=== PATIENT | female | born 1945 | race Caucasian/White ===

== ENCOUNTER 2021-10-18 07:47 | Outpatient (CLI) | payer MEDICARE, OTHER, SELFPAY ==
--- NOTE | 2021-10-18 07:58 | USCV_ITS ---
Amita Chen Age: 76 Gender: F : 1945 Exam Date: 10/18/2021 08:06 Ordering Phys: Pari Salvador Technologist: Jeannette Richard Exam Location: [facility] – [place] Indication: MURMUR BP: 130 / 70 HR: 78 Rhythm: Sinus Technical Quality: Adequate MEASUREMENTS (Male / Female) Normal Values 2D ECHO LV Diastolic Diameter PLAX 3.5 cm 4.2 - 5.9 / 3.9 - 5.3 cm LV Systolic Diameter PLAX 2.1 cm LV Chamber Size 3.4 cm IVS Diastolic Thickness 0.9 cm 0.6 - 1.0 / 0.6 - 0.9 cm IVS Systolic Thickness 1.2 cm LVPW Diastolic Thickness 1.1 cm 0.6 - 1.0 / 0.6 - 0.9 cm LVPW Systolic Thickness 1.2 cm RV Chamber Size 2.9 cm LVOT Diameter 2.0 cm LV Ejection Fraction 2D Teich 72.6 % LV Ejection Fraction MOD 2C 67.2 % LV Ejection Fraction 2C AL 66.6 % LA Diameter 2.9 cm LA Width 2.0 cm LA Height 3.4 cm RA Width 2.4 cm RA Height 3.4 cm Aorta at Sinotubular Diameter 2.7 cm M-MODE Aortic Annulus Diameter 2.8 cm LA Ao Ratio MM 1.0 MV E Point Septal Separation 0.4 cm DOPPLER AV Peak Velocity 156.0 cm/s LVOT Peak Velocity 114.0 cm/s AV Area Cont Eq vti 2.8 cm squared AV Area Cont Eq pk 2.3 cm squared MV Area PHT 4.6 cm squared Mitral E to A Ratio 0.7 MV E' Velocity 40.5 cm/s Mitral E to MV E' Ratio 8.6 Mitral E to LV E' Lateral Ratio 9.6 Mitral E to LV E' Septal Ratio 7.7 TR Peak Velocity 226.2 cm/s TR Peak Gradient 20.5 mmHg TR Mean Velocity 181.8 cm/s TR Mean Gradient 14.4 mmHg TR Velocity Time Integral 58.6 cm TV Peak E Velocity 55.0 cm/s Right Atrial Pressure 3.0 mmHg Pulmonary Artery Systolic Pressu 23.5 mmHg PV Peak Velocity 94.0 cm/s RV Acceleration Time 0.3 s RV Ejection Time 0.1 s RV AcT/ET 3.4 FINDINGS Left Ventricle Normal left ventricular size. LV systolic function is normal with EF of 60-65%. No regional wall motion abnormalities. Grade 1 diastolic dysfunction Right Ventricle The right ventricle is normal in size and function. Right Atrium The right atrium is normal in size. Left Atrium The left atrium is normal in size. Mitral Valve Structurally normal mitral valve without significant stenosis or prolapse. There is no mitral regurgitation. Aortic Valve Structurally normal aortic valve without significant sclerosis or stenosis. There is no aortic regurgitation. Tricuspid Valve Structurally normal tricuspid valve without significant stenosis. Mild tricuspid regurgitation. Pulmonary artery systolic pressure is normal. Pulmonic Valve Structurally normal pulmonic valve without significant stenosis. There is no pulmonic regurgitation. Pericardium Normal pericardium without effusion. Aorta Normal ascending aorta dimension. CONCLUSIONS LV systolic function is normal with EF of 60-65% Grade 1 diastolic dysfunction. Mild tricuspid regurgitation. No comparison studies are available. Bennett Kamara MD (Electronically Signed) Final Date: 27 October 2021 18:51 S
== END 2021-10-18 07:48 | disposition home or self-care (01) ==
LOC: RAD 07:51
PROVIDERS: PCP Internal Medicine; Visit Provider Nurse Practitioner Family
DX: R01.1 Cardiac murmur, unspecified (principal); I07.1 Rheumatic tricuspid insufficiency
CPT/HCPCS: 93306

== ENCOUNTER 2021-11-13 12:43 | Outpatient (CLI) | payer MEDICARE, OTHER, SELFPAY ==
--- NOTE | 2021-11-13 13:21 | MM_ITS ---
WS: [id number] Bilateral screening digital mammogram, 11/13/2021 Clinical Data: SCREEN Comparison: 09/03/2007, 04/17/2006. Findings: The breast parenchymal pattern shows fat replacement. No spiculated masses or clustered calcification s are seen. There are no secondary signs of carcinoma. There are lymph nodes in both axilla. MM/[place] [id number] Impression: 1. Negative bilateral mammogram unchanged. 2. Recommend annual screening mammograms. BIRADS: 1-Negative FOLLOW UP: 1 Year Follow-up The CAD maturity checker was used.
--- NOTE | 2021-11-13 13:42 | XR_ITS ---
WS: [id number] DEXA (DUAL ENERGY X-RAY ABSORPTIOMETRY) Bone mineral density was performed using a webme machine. HISTORY: ASYMPTOMATIC MENOPAUSAL STATUS COMPARISON: None available. Lumbar spine BMD (L1-L4): 1.085 g/cm2 T score: -0.8 Z score: 0.9 Total hip BMD: Left: 0.869 g/cm2. T score: -1.1 Z score: 0.6 Right: 0.880 g/cm2. T score: -1.0 Z score: 0.7 10 year probability of a major osteoporotic fracture is 11%. XR/XR DEXA axial skeleton* [id number] IMPRESSION: OSTEOPENIA based upon the WHO classification for females.
== END 2021-11-13 12:44 | disposition home or self-care (01) ==
LOC: RADSHAW 12:48
PROVIDERS: PCP Internal Medicine; Visit Provider Internal Medicine
DX: Z12.31 Encounter for screening mammogram for malignant neoplasm of breast (principal); Z78.0 Asymptomatic menopausal state; M85.80 Other specified disorders of bone density and structure, unspecified site
CPT/HCPCS: 77067; 77080

== ENCOUNTER 2022-05-09 07:15 | Outpatient (CLI) | payer MEDICARE, OTHER, SELFPAY ==
--- NOTE | 2022-05-09 07:30 | US_ITS ---
WS: [id number] RIGHT UPPER QUADRANT ULTRASOUND HISTORY: ELEVATED LIVER ENZYMES COMPARISON: None available. Liver: 15.6 cm in length. Liver is normal size. Very coarse echotexture throughout the liver. Surface of the liver is slightly nodular suggesting early changes of cirrhosis. No mass or bile duct dilatat ion. Portal Vein: Normal hepatopetal flow with monophasic waveform. Gallbladder: Normally distended gallbladder with no stones or wall thickening. CBD: 0.4 cm Pancreas: Head and tail are poorly visualized. The body is negative. Right kidney: 9.0 cm in length. Normal size and echogenicity. No hydronephrosis or mass. Aorta and IVC: Unremarkable abdominal aorta and IVC. No ascites. US/US abdomen limited [id number] IMPRESSION: 1. Mild hepatocellular disease. Differential includes cirrhosis and hepatic st eatosis. No mass or bile duct dilatation. 2. Normal gallbladder.
== END 2022-05-09 07:16 | disposition home or self-care (01) ==
LOC: RAD 07:16
PROVIDERS: PCP Internal Medicine; Visit Provider Internal Medicine
DX: K76.9 Liver disease, unspecified (principal); R74.8 Abnormal levels of other serum enzymes
CPT/HCPCS: 76705

== ENCOUNTER 2022-11-18 08:32 | Outpatient (CLI) | payer MEDICARE, OTHER, SELFPAY ==
--- NOTE | 2022-11-18 08:41 | MM_ITS ---
WS: [id number] Bilateral screening 3D tomosynthesis digital mammogram, 11/18/2022 Clinical Data: SCREENING Comparison: 11/13/2021, 09/03/2007, 04/17/2006. Findings: The breast parenchymal pattern shows fibroglandular tissue. No spiculated masses or clustered calcifi cations are seen. There are benign calcifications in the lateral aspect of the left breast. There are no secondary signs of carcinoma. MM/[place] [id number] Impression: 1. Negative bilateral mammogram unchanged. 2. Recommend annual screening mammograms. BIRADS: 1-Negative FOLLOW UP: 1 Year Follow-up The CAD weight checker was used.
== END 2022-11-18 08:33 | disposition home or self-care (01) ==
LOC: RAD 08:34
PROVIDERS: PCP Internal Medicine; Visit Provider Internal Medicine
DX: Z12.31 Encounter for screening mammogram for malignant neoplasm of breast (principal)
CPT/HCPCS: 77063; 77067

== ENCOUNTER 2023-02-09 10:27 | Outpatient (CLI) | payer MEDICARE, OTHER, SELFPAY ==
--- NOTE | 2023-02-09 11:16 | USCV_ITS ---
Amita Chen Age: 77 Gender: F : 1945 Exam Date: 02/09/2023 11:31 Ordering Phys: Josefa Hansen MD Technologist: Wong Hamilton Exam Location: [facility] – [place] Indication: short of breath BP: 130 / 80 HR: 81 Rhythm: Sinus Technical Quality: Adequate MEASUREMENTS (Male / Female) Normal Values 2D ECHO LV Diastolic Diameter PLAX 3.5 cm 4.2 - 5.9 / 3.9 - 5.3 cm LV Systolic Diameter PLAX 2.1 cm IVS Diastolic Thickness 1.0 cm 0.6 - 1.0 / 0.6 - 0.9 cm IVS Systolic Thickness 1.3 cm LVPW Diastolic Thickness 1.0 cm 0.6 - 1.0 / 0.6 - 0.9 cm LVPW Systolic Thickness 1.2 cm LVOT Diameter 2.0 cm LV Ejection Fraction 2D Teich 72.1 % LV Ejection Fraction MOD 2C 68.9 % LV Ejection Fraction 2C AL 68.4 % LA Diameter 3.9 cm Aorta at Sinotubular Diameter 2.0 cm IVC Diameter 1.5 cm M-MODE Aortic Annulus Diameter 3.3 cm LA Ao Ratio MM 1.3 MV E Point Septal Separation 0.5 cm DOPPLER AV Peak Velocity 156.0 cm/s LVOT Peak Velocity 128.0 cm/s AV Area Cont Eq vti 2.4 cm squared AV Area Cont Eq pk 2.7 cm squared MV Area PHT 2.8 cm squared Mitral E to A Ratio 0.8 MV E' Velocity 41.0 cm/s Mitral E to MV E' Ratio 9.1 Mitral E to LV E' Lateral Ratio 8.3 Mitral E to LV E' Septal Ratio 10.2 TR Peak Velocity 187.3 cm/s TR Peak Gradient 14.0 mmHg TV Peak E Velocity 110.0 cm/s Right Atrial Pressure 3.0 mmHg Pulmonary Artery Systolic Pressu 17.0 mmHg RV Acceleration Time 0.1 s FINDINGS Left Ventricle Normal left ventricular size and systolic function, EF 64 %. No regional wall motion abnormalities. Mild left ventricular hypertrophy. Grade I/IV diastolic dysfunction (abnormal relaxation filling pattern), normal to mildly elevated filling pressures. Right Ventricle The right ventricle is normal in size and function. Right Atrium The right atrium is normal in size. Left Atrium The left atrium is normal in size. Mitral Valve Mild mitral annular calcification. Aortic Valve Thickened aortic valve. Mild aortic valve calcification. Tricuspid Valve No gross abnormalities noted Pulmonic Valve No gross abnormalities noted Pericardium Normal pericardium without effusion. Aorta Normal ascending aorta dimension. IVC Normal inferior vena cava. CONCLUSIONS Normal left ventricular size and systolic function, EF 64 %. No regional wall motion abnormalities. Mild left ventricular hypertrophy. Grade I/IV diastolic dysfunction (abnormal relaxation filling pattern), normal to mildly elevated filling pressures. Thickened aortic valve. Mild aortic valve calcification. Mild mitral annular calcification. There is no pericardial effusion. There are no intracardiac masses. Compared to the study from 10/18/2021, there may not be a significant change Dr Portia Wick MD FACC (Electronically Signed) Final Date: 09 February 2023 18:49 S
--- NOTE | 2023-02-09 11:51 | XRR_ITS ---
PROCEDURE INFORMATION: Exam: XR Osseous Survey; Complete Axial And Appendicular Skeleton Exam date and time: 02/09/2023 12:05 PM Age: 77 years old Clinical indication: Abnormal findings; High protein in blood, prior surgery; Surgery type: Hysterectomy; Additional info: Abn lab TECHNIQUE: Imaging protocol: Radiological examination. Complete osseous survey. Axial and appendicular skeleton. COMPARISON: No relevant prior studies available. FINDINGS: Bones/joints: Unremarkable. No fracture. Joints are unremarkable. No suspicious lytic or blastic lesions. 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 Soft tissues: Unremarkable. XR/XR bone survey* [id number] IMPRESSION: Negative bone survey examination
[2023-02-10 11:04] LABS: KAPPA/LAMBDA LIGHT CHAINS FREE 0.19 (0.26-1.65); LAMBDA LIGHT CHAIN, FREE, SERU 119.4 mg/L (5.7-26.3)
[2023-02-10 13:58] LABS: Beta-2-Microglobulin 7.87 mg/L (< OR = 2.51)
== END 2023-02-09 10:28 | disposition home or self-care (01) ==
LOC: LAB 10:37
PROVIDERS: PCP Internal Medicine; Visit Provider Internal Medicine Medical Oncology
DX: R79.89 Other specified abnormal findings of blood chemistry (principal); R06.02 Shortness of breath; I08.0 Rheumatic disorders of both mitral and aortic valves
CPT/HCPCS: 36415; 77075; 82232; 83883; 86334; 93306

== ENCOUNTER 2023-02-24 08:55 | Oncology outpatient (recurring) (ONCR) | payer MEDICARE, OTHER, SELFPAY | END 2023-03-15 23:59 | disposition home or self-care (01) | PROVIDERS: PCP Internal Medicine; Visit Provider Internal Medicine Medical Oncology | DX: D47.2 Monoclonal gammopathy (principal); D70.9 Neutropenia, unspecified | CPT/HCPCS: 99204; 99205 ==

== ENCOUNTER 2023-03-02 10:15 | Day surgery (SDC) | payer MEDICARE, OTHER, SELFPAY ==
[2023-02-26 13:23] VITALS: BMI 25.4
[2023-03-02 10:37] VITALS: BP 168/85; PULSE 88; RESP 16; TEMP 36.7; O2SAT 99
[2023-03-02] MEDS: sodium chloride 0.9% 1,000 ML 30 ML IV (10:41)
[2023-03-02 11:15] LABS: Basophils % 0.4 %; Eosinophils # 0.2 10^3/uL (0.0-0.8); Eosinophils % 1.6 %; Hematocrit 38.1 % (37.0-47.0); Hemoglobin 12.1 g/dL (11.5-15.3); Lymphocytes # 5.7 10^3/uL (0.8-4.8); Lymphocytes % 54.1 %; Mean Corpuscular HGB Conc 31.8 g/dL (30.0-36.0); Mean Corpuscular Hemoglobin 31.7 pg (28.0-34.0); Mean Corpuscular Volume 99.7 fl (81-99); Mean Platelet Volume 10.8 fL (7.4-10.4); Monocytes # 1.5 10^3/uL (0.2-0.9); Monocytes % 14.5 %; Neutrophils # 3.07 10^3/uL (1.8-7.7); Neutrophils % 29.2 %; Nucleated Red Blood Cells % 0 %; Platelet Count 154 10^3/cmm (130-400); Red Blood Count 3.82 10^6/uL (4.1-5.3); Red Cell Distribution Width 13.9 % (12.1-15.1); White Blood Count 10.5 10^3/uL (4.0-10.0)
--- NOTE | 2023-03-02 11:34 | ANES.PREANE2 ---
Pre-Anesthetic Assessment Height/Weight: Height 1.52 m Weight 58.967 kg Temp Pulse Resp BP Pulse Ox O2 Del Method 98.1 F 88 16 168/85 99 Room Air 03/02/23 10:37 03/02/23 10:37 03/02/23 10:37 03/02/23 10:37 03/02/23 10:37 03/02/23 10:37 Preop Diagnosis: Monoclonal Gammopathy Operation Date: 03/02/23 12:00 Proposed Procedures p Bone Marrow Biospy With Aspiration(Not Applicable) - Ann-Marie Orozco MD Familial anesthetic complications: none Was Beta Evie taken within 24 hours: N/A Was Clonidine taken within 24 hours: N/A Last intake: Intake Last Liquid Date 03/01/23 Last Liquid Time 22:30 Last Solid Date 03/01/23 Last Solid Time 18:00 Social No alcohol and No tobacco Exam alert, oriented x 3, clear to auscultation bilaterally and regular rate & rhythm Airway Submandibular: within normal limits Cervical ROM: within normal limits Mallampati: Class II Dentition: full Pulmonary None reported CV/HEM None reported None reported Hepatic None reported elevated enzymes GI None reported Metabolic None reported Musc/skel None reported Neuropsych None reported Anesthetic Plan ASA status: 1 Anesthesia: MAC Medications/Allergies Home Medications Medication Instructions Recorded Confirmed Last Taken Type calcium carbonate 600 mg calcium 600 mg PO DAILY 02/24/23 03/02/23 03/01/23 History (1,500 mg) tablet vqfvxvvohyty-ynmpsekw-ccpzny tablet 1 tab PO DAILY 02/24/23 03/02/23 03/01/23 History quinine-vitamin E capsule 1 cap PO DAILY 02/24/23 03/02/23 Unknown History Allergies Allergy/AdvReac Type Severity Reaction Status Date / Time amoxicillin Allergy ALGY-Rash Verified 03/02/23 10:30 Current Medications Generic Name Dose Route Start Last Admin Trade Name Freq PRN Reason Stop Dose Admin Sodium Chloride 1,000 mls @ 30 mls/hr 03/02/23 10:30 03/02/23 10:41 Sodium Chloride 0.9% IV 03/03/23 10:29 30 mls/hr .Q24H JOHN Administration PFSH Anesthesia Medical History (Updated 02/24/23 @ 13:56 by Reinier Jordan MD) Elevated liver enzymes History of nephrolithiasis Surgical History (Updated 02/24/23 @ 13:56 by Reinier Jordan MD) History of colonoscopy 05/2022 History of extraction of renal calculus History of hysterectomy 1999 History of tonsillectomy 1950 Status post arthroscopic surgery of right knee Family History (Updated 02/24/23 @ 09:20 by Dea Matson LPN) Father CAD (coronary artery disease) AFIB Cancer Melanoma to head Mother CAD (coronary artery disease) Brother Cancer Prostate cancer Denies family history of Diabetes Clotting disorder Dementia Hyperlipidemia Psychiatric illness Chronic kidney disease (CKD) Suicide Anesthesia complication Bleeding disorder Lung disease Hypertension Stroke Social History (Updated 02/24/23 @ 09:15 by Dea Matson LPN) Smoking and tobacco status: never smoked Alcohol intake: never Data Anesthesia 03/02/23 10:40 Cardiac Studies: Echocardiogram 02/09/23
[2023-03-02 11:45] LABS: Slide Review Slide Review Perform
--- NOTE | 2023-03-02 12:15 | W.PM.OPSUD ---
Surgery/Procedure H&P Update DATE OF PROCEDURE: March 02, 2023 DATE H&P PERFORMED: 02/24/23 CHANGES TO PREVIOUS DOCUMENTATION: Patient seen and examined, no obvious new changes or symptoms since her recent visit to the clinic PREOP DIAGNOSIS: Monoclonal Gammopathy PRIMARY INDICATION FOR PROCEDURE: Monoclonal gammopathy/leukocytosis/lymphocytosis PLANNED PROCEDURE: Operation Date: 03/02/23 12:00 Proposed Procedures p Bone Marrow Biospy With Aspiration(Not Applicable) - Ann-Marie Orozco MD
--- NOTE | 2023-03-02 12:29 | P.PCN_ITS ---
Bone Marrow Biopsy Bone Marrow Biopsy: I was consulted by [] office regarding bone marrow biopsy on [[facility]]. Briefly, the patient is a [77] year old [Female] with [Monoclonal gammopathy]. In the Outpatient Services Department, with nursing staff and laboratory technologists in attendance, the procedure was discussed with the patient. Appropriate consent form had been signed. Appropriate alternatives, benefits and risks of procedure were discussed with the patient and she was pre- operatively assessed with a history and physical by myself and cleared for the biopsy procedure. The patient did request IV sedation and that was provided by the Anesthesia Department. Under aseptic condition right posterior area was cleaned and prepped, local anesthesia was given, about 15 cc of bone marrow aspirate and core biopsy was obtained and patient tolerated procedure well, specimen was sent for routine histopathology and flow cytometry, cytogenetics and molecular studies, as requested by Dr. Jordan Thank you for allowing me to participate in this patient's care and diagnosis. Coding Level of Care Code Acute Code for Shaggy Fwhaily
[2023-03-02 12:32] VITALS: BP 102/56; PULSE 70; RESP 16; TEMP 36.4; O2SAT 95
[2023-03-02 12:50] VITALS: BP 127/65; PULSE 67; RESP 18; O2SAT 96
--- NOTE | 2023-03-02 14:56 | ANE.PACU2 ---
Inpatient post-anesthesia follow up: Airway intact: Yes Vital signs: Temperature 97.6 F Pulse Rate 67 Respiratory Rate 18 Blood Pressure 127/65 Pulse Oximetry 96 Oxygen Delivery Me thod Room Air Oxygen Flow Rate Fraction of Inspir ed Oxygen Hydration adequate: Yes Nausea and vomiting: No Pain level: 2 Mental status: Baseline
[2023-03-03 15:01] LABS: Leukemia Profile (BBPL) See Report; Lymphoma Profile (BBPL) See Report
[2023-03-11 10:37] LABS: Chromosome Analysis BBPL See Report
[2023-03-12 10:23] LABS: CLL Prognostic Panel (BBPL) See Report
[2023-03-16 10:46] LABS: Miscellaneous Test See Scanned Lab Rpt
[2023-03-25 12:09] LABS: Miscellaneous Test See Scanned Lab Rpt
== END 2023-03-02 13:05 | disposition home or self-care (01) ==
PROVIDERS: PCP Internal Medicine; Visit Provider Internal Medicine Hematology & Oncology
PROC: 07DT3ZX Extraction of Bone Marrow, Percutaneous Approach, Diagnostic (ICD-10-PCS; CPT 38222; principal; 2023-03-02 12:00)
DX: D47.2 Monoclonal gammopathy (principal); R74.01 Elevation of levels of liver transaminase levels; D70.9 Neutropenia, unspecified
CPT/HCPCS: 36415; 38222; 81263; 81305; 82232; 85025; 88184; 88185; 88237; 88264; 88271; 88291; 88305; 88311; 88367; 88374; J2704; J7030

== ENCOUNTER 2023-03-12 14:49 | Outpatient (CLI) | payer MEDICARE, OTHER, SELFPAY ==
[2023-03-12 16:19] LABS: Blood Urea Nitrogen 17 mg/dL (8-23)
--- NOTE | 2023-03-12 16:30 | CT_ITS ---
WS: [id number] CT CHEST, ABDOMEN AND PELVIS WITH CONTRAST HISTORY: Staging for Waldenstrom's macroglobulinemia TECHNIQUE: Contiguous 5 mm axial imaging performed through the chest, abdomen and pelvis with IV cont rast, oral contrast has been provided. Coronal and sagittal reformats chest. Coronal and sagittal ref ormats through the abdomen and pelvis. All CT scans at [facility] use at least one of these d ose optimization techniques: automated exposure control; mA and/or kV adjustment per patient size (in cludes targeted exams where dose is matched to clinical indication); or iterative reconstruction. CONTRAST: Omnipaque 350; 100 mL IV. DLP: 178.03 mGy.cm COMPARISON: None available. Chest CT: No pulmonary mass or nodule. Some area of groundglass attenuation in the medial RIGHT lower lobe adjacent to a spine osteophyte. No pericardial or pleural effusions. Heart is mildly enlarged. No supraclavicular adenopathy. There are several small lymph nodes in the axilla, RIGHT greater than LEFT. No mediastinal or hilar adenopathy. No retrocrural lymph nodes. Mild atherosclerosis aorta. Nor mal size pulmonary artery. Abdomen CT: Abnormal liver. Caudate enlargement with a very nodular surface of the liver. Main portal vein is normal. No hepatic mass. Recannulization of the umbilical vein. Spleen is markedly enlarged extending over a length of 14.6 cm. Normal gallbladder. Mild atrophy of the pancreas. No bile duct di latation. Normal adrenal glands. No renal obstruction. Cyst with wall calcification superior pole RIG HT kidney measures 2.5 x 2.5 cm. Too small to characterize low-attenuation nodule LEFT kidney. Modera te atherosclerosis aorta with no aneurysm. Numerous enlarged lymph nodes are noted near the upper abdomen towards the celiac axis and marjorie hep atis with the largest measuring 18 mm in short axis diameter. There are several smaller but numerous lymph nodes at the aortocaval and SMA location. Small shoddy para-aortic lymph nodes. These are all l ess than a centimeter. Mildly distended stomach with oral contrast. No small bowel obstruction. No colon obstruction. Append ix is not identified. Numerous diverticula in the distal colon. No acute diverticulitis or obstructio n. Pelvic CT: Small amount of ascites. Normal appearance of the urinary bladder. No adenopathy identifie d in the pelvis. Prior hysterectomy. Increase in lumbar lordosis. Increase in thoracic kyphosis. CT/CT chest abdpel w/*[id number] IMPRESSION: 1. Very small subcentimeter axillary lymph nodes. 2. No lymphadenopathy within the mediastinum or hilum. 3. Celiac axis and marjorie hepatis lymphadenopathy with the largest lymph nodes measuring up to 18 mm. There are additional smaller aortocaval and periaortic l ymph nodes. 4. Changes of cirrhosis with portal hypertension. Spleen is enlarged with reca nalization of the umbilical vein. 5. Small amount of ascites. 6. Prior hysterectomy. 7. Complex RIGHT renal cyst with calcification in the wall.
[2023-03-12] MEDS: iohexol 350 mg/mL 500 mL Btl (per mL) IV (16:33)
[2023-03-12] MEDS: iohexol 350 mg/mL 500 mL Btl (per mL) PO (16:33)
[2023-03-12 17:12] LABS: Basophils % 0.3 %; Eosinophils # 0.2 10^3/uL (0.0-0.8); Eosinophils % 1.8 %; Hematocrit 35.2 % (37.0-47.0); Hemoglobin 11.3 g/dL (11.5-15.3); Lymphocytes # 4.5 10^3/uL (0.8-4.8); Lymphocytes % 51.6 %; Mean Corpuscular HGB Conc 32.1 g/dL (30.0-36.0); Mean Corpuscular Hemoglobin 31.7 pg (28.0-34.0); Mean Corpuscular Volume 98.6 fl (81-99); Mean Platelet Volume 10.7 fL (7.4-10.4); Monocytes % 11.6 %; Neutrophils % 34.5 %; Nucleated Red Blood Cells % 0 %; Platelet Count 135 10^3/cmm (130-400); Red Blood Count 3.57 10^6/uL (4.1-5.3); Red Cell Distribution Width 13.7 % (12.1-15.1); White Blood Count 8.7 10^3/uL (4.0-10.0)
[2023-03-12 17:13] LABS: Erythrocyte Sedimentation Rate 22 mm/hr (0-15)
[2023-03-12 17:31] LABS: Slide Review Slide Review Perform
[2023-03-12 17:36] LABS: Alanine Aminotransferase 57 U/L (0-33); Albumin Level 3.6 g/dL (3.5-5.2); Alkaline Phosphatase 88 U/L (35-105); Anion Gap 15.2 (5-19); Aspartate Amino Transferase 52 U/L (0-32); Blood Urea Nitrogen 19 mg/dL (8-23); Calcium 9.7 mg/dL (8.5-10.5); Carbon Dioxide 24 mmol/L (22-29); Chloride 98 mmol/L (98-107); Globulin 5.6 g/dL (1.3-4.6); Glucose 85 mg/dL (65-115); Immunoglobulin IGA 98 mg/dL (70-400); Immunoglobulin IGG 1027 mg/dL (700-1600); Lactate Dehydrogenase 146 U/L (135-214); Osmolality Calculated 278 mOsm/kg (285-295); Potassium 4.2 mmol/L (3.5-5.1); Sodium 133 mmol/L (136-145); Total Bilirubin 0.9 mg/dL (0.15-1.2); Total Protein 9.2 g/dL (6.6-8.7)
[2023-03-12 17:49] LABS: Immunoglobulin IGM 4071 mg/dL (40-230)
[2023-03-12 17:53] LABS: Hepatitis A Antibody IgM Non-Reactive (Nonreactive); Hepatitis B Core AB, Total Non-Reactive (Nonreactive); Hepatitis B Surface AB 3.5 (11.5-1000); Hepatitis B Surface Antigen Non-Reactive (Nonreactive); Hepatitis C Virus Antibody Non-Reactive (Nonreactive)
[2023-03-17 00:40] LABS: PROTEIN, TOTAL 9.2 g/dL (6.1-8.1)
[2023-03-17 12:10] LABS: ABNORMAL PROTEIN BAND 1 2.7 g/dL (NONE DETECTED); ALBUMIN 3.5 g/dL (3.8-4.8); ALPHA 1 GLOBULIN 0.3 g/dL (0.2-0.3); ALPHA 2 GLOBULIN 1.4 g/dL (0.5-0.9); BETA 1 GLOBULIN 0.3 g/dL (0.4-0.6); BETA 2 GLOBULIN 0.3 g/dL (0.2-0.5); GAMMA GLOBULIN 3.4 g/dL (0.8-1.7)
== END 2023-03-12 14:50 | disposition home or self-care (01) ==
LOC: RAD 14:51
PROVIDERS: PCP Internal Medicine; Visit Provider Internal Medicine Medical Oncology
DX: D47.2 Monoclonal gammopathy (principal); R74.8 Abnormal levels of other serum enzymes
CPT/HCPCS: 36415; 71260; 74177; 80053; 82565; 82784; 83615; 84155; 84165; 84520; 84550; 85025; 85651; 86334; 86705; 86706; 86709; 86803; 87340; Q9967

== ENCOUNTER 2023-03-31 08:34 | Oncology outpatient (recurring) (ONCR) | payer MEDICARE, OTHER, SELFPAY ==
[2023-03-31 09:04] LABS: Hemoglobin 11.5 g/dL (11.5-15.3); Mean Corpuscular HGB Conc 31.9 g/dL (30.0-36.0); Mean Corpuscular Hemoglobin 31.3 pg (28.0-34.0); Mean Corpuscular Volume 97.8 fl (81-99); Mean Platelet Volume 10.3 fL (7.4-10.4); Platelet Count 155 10^3/cmm (130-400); Red Blood Count 3.68 10^6/uL (4.1-5.3); Red Cell Distribution Width 13.6 % (12.1-15.1)
[2023-03-31 09:23] LABS: Alanine Aminotransferase 47 U/L (0-33); Albumin Level 3.7 g/dL (3.5-5.2); Alkaline Phosphatase 88 U/L (35-105); Anion Gap 17.1 (5-19); Aspartate Amino Transferase 48 U/L (0-32); Blood Urea Nitrogen 17 mg/dL (8-23); Carbon Dioxide 24 mmol/L (22-29); Chloride 100 mmol/L (98-107); Globulin 5.9 g/dL (1.3-4.6); Glucose 95 mg/dL (65-115); Immunoglobulin IGA 85 mg/dL (70-400); Immunoglobulin IGG 1084 mg/dL (700-1600); Lactate Dehydrogenase 143 U/L (135-214); Osmolality Calculated 285 mOsm/kg (285-295); Potassium 4.1 mmol/L (3.5-5.1); Sodium 137 mmol/L (136-145); Total Bilirubin 1.1 mg/dL (0.15-1.2); Total Protein 9.6 g/dL (6.6-8.7)
[2023-03-31 09:36] LABS: Immunoglobulin IGM 4391 mg/dL (40-230)
[2023-03-31 10:36] LABS: Slide Review Slide Review Perform
[2023-03-31 10:37] LABS: Absolute Eosinophils 0.1 10^3/cmm (0.0-0.7); Absolute Segmented Neutrophil 3.9 10/cmm (1.6-7.1); Band Neutrophils Absolute 0.4 10^3/cmm (0.0-1.2); Eosinophils 2 %; Lymphocytes 33 %; Lymphocytes Absolute 4.4 10^3/cmm (1.2-3.4); Monocytes Absolute 0.2 10^3/cmm (0.1-0.6); Segmented Neutrophils 43 %; Total Cells Counted 100 (0-100)
[2023-03-31 10:38] LABS: Absolute Neutrophil 4.2 10^3/cmm (1.4-6.5); Platelet Estimate Normal (Normal)
[2023-04-01 15:21] LABS: PROTEIN, TOTAL 9.5 g/dL (6.1-8.1)
[2023-04-02 13:26] LABS: ABNORMAL PROTEIN BAND 1 3.1 g/dL (NONE DETECTED); ALBUMIN 3.9 g/dL (3.8-4.8); ALPHA 1 GLOBULIN 0.3 g/dL (0.2-0.3); ALPHA 2 GLOBULIN 0.8 g/dL (0.5-0.9); BETA 1 GLOBULIN 0.4 g/dL (0.4-0.6); BETA 2 GLOBULIN 0.3 g/dL (0.2-0.5); GAMMA GLOBULIN 3.8 g/dL (0.8-1.7)
== END 2023-04-15 23:59 | disposition home or self-care (01) ==
PROVIDERS: PCP Internal Medicine; Visit Provider Internal Medicine Medical Oncology
DX: C88.0 Waldenstrom macroglobulinemia (principal); D47.2 Monoclonal gammopathy; R74.8 Abnormal levels of other serum enzymes; D64.9 Anemia, unspecified; K76.0 Fatty (change of) liver, not elsewhere classified; K76.6 Portal hypertension; Z79.899 Other long term (current) drug therapy
CPT/HCPCS: 36415; 80053; 82784; 83615; 84155; 84165; 85007; 85025; 99214

== ENCOUNTER 2023-05-05 07:58 | Oncology outpatient (recurring) (ONCR) | payer MEDICARE, OTHER, SELFPAY ==
[2023-05-05 08:07] VITALS: BP 161/72; PULSE 83; RESP 18; TEMP 36.9; O2SAT 98
[2023-05-05 08:17] LABS: Hematocrit 34.1 % (37.0-47.0); Hemoglobin 10.9 g/dL (11.5-15.3); Mean Corpuscular Hemoglobin 31.2 pg (28.0-34.0); Mean Corpuscular Volume 97.7 fl (81-99); Mean Platelet Volume 9.8 fL (7.4-10.4); Platelet Count 131 10^3/cmm (130-400); Red Blood Count 3.49 10^6/uL (4.1-5.3); Red Cell Distribution Width 13.7 % (12.1-15.1); White Blood Count 9.7 10^3/uL (4.0-10.0)
[2023-05-05 09:00] LABS: Alanine Aminotransferase 37 U/L (0-33); Albumin Level 3.5 g/dL (3.5-5.2); Alkaline Phosphatase 92 U/L (35-105); Anion Gap 17.2 (5-19); Aspartate Amino Transferase 39 U/L (0-32); Blood Urea Nitrogen 15 mg/dL (8-23); Calcium 9.9 mg/dL (8.5-10.5); Carbon Dioxide 22 mmol/L (22-29); Chloride 105 mmol/L (98-107); Globulin 5.5 g/dL (1.3-4.6); Glucose 87 mg/dL (65-115); Lactate Dehydrogenase 140 U/L (135-214); Osmolality Calculated 290 mOsm/kg (285-295); Potassium 4.2 mmol/L (3.5-5.1); Sodium 140 mmol/L (136-145); Total Bilirubin 0.7 mg/dL (0.15-1.2)
[2023-05-05 09:01] LABS: Absolute Neutrophil 4.1 10^3/cmm (1.4-6.5); Absolute Segmented Neutrophil 3.9 10/cmm (1.6-7.1); Band Neutrophils Absolute 0.2 10^3/cmm (0.0-1.2); Eosinophils 0 %; Lymphocytes 18 %; Lymphocytes Absolute 4.9 10^3/cmm (1.2-3.4); Monocytes Absolute 0.7 10^3/cmm (0.1-0.6); Platelet Estimate Decreased (Normal); Segmented Neutrophils 40 %; Slide Review Slide Review Perform; Total Cells Counted 100 (0-100)
== END 2023-05-15 23:59 | disposition home or self-care (01) ==
PROVIDERS: PCP Internal Medicine; Visit Provider Internal Medicine Medical Oncology
DX: C88.0 Waldenstrom macroglobulinemia (principal); D47.2 Monoclonal gammopathy; D64.9 Anemia, unspecified; K74.60 Unspecified cirrhosis of liver; K76.6 Portal hypertension; Z79.899 Other long term (current) drug therapy
CPT/HCPCS: 36415; 80053; 83615; 85007; 85025; 99215

== ENCOUNTER 2023-05-26 09:24 | Oncology outpatient (recurring) (ONCR) | payer MEDICARE, OTHER, SELFPAY ==
[2023-05-26 09:57] VITALS: BP 149/72; PULSE 79; RESP 16; TEMP 36.3; O2SAT 97
[2023-05-26 10:09] LABS: Basophils # 0.1 10^3/uL (0.0-0.1); Basophils % 0.8 %; Eosinophils # 0.1 10^3/uL (0.0-0.8); Eosinophils % 1.2 %; Hematocrit 31.4 % (37.0-47.0); Hemoglobin 9.9 g/dL (11.5-15.3); Lymphocytes # 7.8 10^3/uL (0.8-4.8); Lymphocytes % 68.3 %; Mean Corpuscular HGB Conc 31.5 g/dL (30.0-36.0); Mean Corpuscular Volume 98.4 fl (81-99); Mean Platelet Volume 10.9 fL (7.4-10.4); Monocytes # 0.4 10^3/uL (0.2-0.9); Monocytes % 3.1 %; Neutrophils # 3.02 10^3/uL (1.8-7.7); Neutrophils % 26.4 %; Nucleated Red Blood Cells % 0 %; Platelet Count 154 10^3/cmm (130-400); Red Blood Count 3.19 10^6/uL (4.1-5.3); Red Cell Distribution Width 14.2 % (12.1-15.1); White Blood Count 11.4 10^3/uL (4.0-10.0)
[2023-05-26 10:37] LABS: Alanine Aminotransferase 39 U/L (0-33); Albumin Level 3.6 g/dL (3.5-5.2); Alkaline Phosphatase 89 U/L (35-105); Anion Gap 13.5 (5-19); Aspartate Amino Transferase 35 U/L (0-32); Blood Urea Nitrogen 19 mg/dL (8-23); Carbon Dioxide 25 mmol/L (22-29); Chloride 106 mmol/L (98-107); Globulin 4.9 g/dL (1.3-4.6); Glucose 91 mg/dL (65-115); Immunoglobulin IGA 77 mg/dL (70-400); Immunoglobulin IGG 948 mg/dL (700-1600); Lactate Dehydrogenase 127 U/L (135-214); Osmolality Calculated 292 mOsm/kg (285-295); Potassium 4.5 mmol/L (3.5-5.1); Sodium 140 mmol/L (136-145); Total Protein 8.5 g/dL (6.6-8.7)
[2023-05-26 10:49] LABS: Immunoglobulin IGM 3514 mg/dL (40-230)
[2023-05-27 08:04] LABS: PROTEIN, TOTAL 8.4 g/dL (6.1-8.1)
[2023-05-27 16:09] LABS: ABNORMAL PROTEIN BAND 1 2.5 g/dL (NONE DETECTED); ALBUMIN 3.6 g/dL (3.8-4.8); ALPHA 1 GLOBULIN 0.3 g/dL (0.2-0.3); ALPHA 2 GLOBULIN 0.7 g/dL (0.5-0.9); BETA 1 GLOBULIN 0.4 g/dL (0.4-0.6); BETA 2 GLOBULIN 0.3 g/dL (0.2-0.5); GAMMA GLOBULIN 3.1 g/dL (0.8-1.7)
== END 2023-06-15 23:59 | disposition home or self-care (01) ==
PROVIDERS: Nurse Practitioner Family; PCP Internal Medicine; Visit Provider Internal Medicine Medical Oncology
DX: C88.0 Waldenstrom macroglobulinemia (principal); D47.2 Monoclonal gammopathy; R74.8 Abnormal levels of other serum enzymes; Z79.899 Other long term (current) drug therapy
CPT/HCPCS: 36415; 80053; 82784; 83615; 84155; 84165; 85025; 99214

== ENCOUNTER 2023-07-01 13:52 | Oncology outpatient (recurring) (ONCR) | payer MEDICARE, OTHER, SELFPAY ==
[2023-06-24 12:56] VITALS: BP 143/76; PULSE 74; RESP 18; TEMP 36.3; O2SAT 98
[2023-06-24 13:42] LABS: Basophils % 0.4 %; Eosinophils # 0.2 10^3/uL (0.0-0.8); Eosinophils % 1.6 %; Hematocrit 33.6 % (37.0-47.0); Lymphocytes # 5.3 10^3/uL (0.8-4.8); Lymphocytes % 58.1 %; Mean Corpuscular HGB Conc 32.7 g/dL (30.0-36.0); Mean Corpuscular Hemoglobin 32.4 pg (28.0-34.0); Mean Corpuscular Volume 99.1 fl (81-99); Mean Platelet Volume 11.9 fL (7.4-10.4); Monocytes # 0.5 10^3/uL (0.2-0.9); Monocytes % 5.6 %; Neutrophils # 3.09 10^3/uL (1.8-7.7); Neutrophils % 34.1 %; Nucleated Red Blood Cells % 0 %; Platelet Count 139 10^3/cmm (130-400); Red Blood Count 3.39 10^6/uL (4.1-5.3); Red Cell Distribution Width 14.7 % (12.1-15.1); White Blood Count 9.1 10^3/uL (4.0-10.0)
[2023-06-24 13:52] LABS: Alanine Aminotransferase 22 U/L (0-33); Albumin Level 3.8 g/dL (3.5-5.2); Alkaline Phosphatase 78 U/L (35-105); Anion Gap 13.4 (5-19); Aspartate Amino Transferase 29 U/L (0-32); Blood Urea Nitrogen 20 mg/dL (8-23); Calcium 9.7 mg/dL (8.5-10.5); Carbon Dioxide 28 mmol/L (22-29); Chloride 103 mmol/L (98-107); Globulin 4.6 g/dL (1.3-4.6); Glucose 102 mg/dL (65-115); Immunoglobulin IGA 75 mg/dL (70-400); Immunoglobulin IGG 978 mg/dL (700-1600); Lactate Dehydrogenase 148 U/L (135-214); Osmolality Calculated 293 mOsm/kg (285-295); Potassium 4.4 mmol/L (3.5-5.1); Sodium 140 mmol/L (136-145); Total Bilirubin 1.1 mg/dL (0.15-1.2); Total Protein 8.4 g/dL (6.6-8.7)
[2023-06-24 14:01] LABS: Free T4 Free Thyroxine 1.16 ng/dL (0.82-1.77); Thyroid Stimulating Hormone 2.97 uIU/mL (0.27-4.20)
[2023-06-24 14:16] LABS: Immunoglobulin IGM 3380 mg/dL (40-230)
[2023-06-26 01:09] LABS: PROTEIN, TOTAL 8.4 g/dL (6.1-8.1)
[2023-06-26 10:30] LABS: ABNORMAL PROTEIN BAND 1 2.1 g/dL (NONE DETECTED); ALBUMIN 3.8 g/dL (3.8-4.8); ALPHA 1 GLOBULIN 0.3 g/dL (0.2-0.3); ALPHA 2 GLOBULIN 0.7 g/dL (0.5-0.9); BETA 1 GLOBULIN 0.5 g/dL (0.4-0.6); BETA 2 GLOBULIN 0.3 g/dL (0.2-0.5); GAMMA GLOBULIN 2.8 g/dL (0.8-1.7)
== END 2023-07-16 23:59 | disposition home or self-care (01) ==
PROVIDERS: PCP Internal Medicine; Visit Provider Internal Medicine Medical Oncology
DX: C88.0 Waldenstrom macroglobulinemia (principal); D47.2 Monoclonal gammopathy; Z79.899 Other long term (current) drug therapy
CPT/HCPCS: 36415; 80053; 82784; 83615; 84155; 84165; 84439; 84443; 85025; 99214

== ENCOUNTER 2023-07-28 12:05 | Oncology outpatient (recurring) (ONCR) | payer MEDICARE, OTHER, SELFPAY ==
[2023-07-28 12:09] VITALS: BP 142/75; PULSE 68; RESP 18; TEMP 36.1; O2SAT 97
[2023-07-28 12:44] LABS: Alanine Aminotransferase 17 U/L (0-33); Albumin Level 3.8 g/dL (3.5-5.2); Alkaline Phosphatase 80 U/L (35-105); Anion Gap 11.5 (5-19); Aspartate Amino Transferase 23 U/L (0-32); Blood Urea Nitrogen 18 mg/dL (8-23); Calcium 9.7 mg/dL (8.5-10.5); Carbon Dioxide 28 mmol/L (22-29); Chloride 104 mmol/L (98-107); Globulin 4.5 g/dL (1.3-4.6); Glucose 91 mg/dL (65-115); Osmolality Calculated 289 mOsm/kg (285-295); Potassium 4.5 mmol/L (3.5-5.1); Sodium 139 mmol/L (136-145); Total Protein 8.3 g/dL (6.6-8.7)
[2023-07-28 12:48] LABS: Basophils % 0.5 %; Eosinophils # 0.2 10^3/uL (0.0-0.8); Lymphocytes # 4.6 10^3/uL (0.8-4.8); Lymphocytes % 56.3 %; Mean Corpuscular HGB Conc 31.7 g/dL (30-55); Mean Corpuscular Hemoglobin 31.2 pg (27-33); Mean Corpuscular Volume 98.3 fl (85-98); Mean Platelet Volume 12.1 fL (7.4-10.4); Monocytes # 0.5 10^3/uL (0.2-0.9); Neutrophils # 2.86 10^3/uL (1.8-7.7); Nucleated Red Blood Cells % 0 %; Platelet Count 117 10^3/cmm (157-399); Red Blood Count 3.56 10^6/uL (3.85-5.65); Red Cell Distribution Width 13.9 % (12.1-15.1); White Blood Count 8.17 10^3/uL (3.29-11.43)
[2023-07-28 14:49] LABS: Immunoglobulin IGA 70 mg/dL (70-400); Immunoglobulin IGG 938 mg/dL (700-1600)
[2023-07-28 16:44] LABS: Immunoglobulin IGM 3625 mg/dL (40-230)
== END 2023-08-15 23:59 | disposition home or self-care (01) ==
PROVIDERS: PCP Internal Medicine; Visit Provider Internal Medicine Medical Oncology
DX: C88.0 Waldenstrom macroglobulinemia (principal); D47.2 Monoclonal gammopathy
CPT/HCPCS: 36415; 80053; 82784; 85025; 99214

== ENCOUNTER 2023-10-27 13:20 | Oncology outpatient (recurring) (ONCR) | payer MEDICARE, OTHER, SELFPAY ==
[2023-10-20 13:04] VITALS: BP 143/60; PULSE 72; RESP 16; TEMP 36.7; O2SAT 99
[2023-10-20 13:23] LABS: Basophils % 0.7 %; Eosinophils # 0.1 10^3/uL (0.0-0.8); Eosinophils % 1.8 %; Hematocrit 34.5 % (36-47); Lymphocytes # 2.5 10^3/uL (0.8-4.8); Lymphocytes % 44.6 %; Mean Corpuscular HGB Conc 32.5 g/dL (30-55); Mean Corpuscular Hemoglobin 32.1 pg (27-33); Mean Corpuscular Volume 98.9 fl (85-98); Mean Platelet Volume 11.3 fL (7.4-10.4); Monocytes # 0.4 10^3/uL (0.2-0.9); Monocytes % 7.7 %; Neutrophils # 2.46 10^3/uL (1.8-7.7); Neutrophils % 44.8 %; Nucleated Red Blood Cells % 0 %; Platelet Count 111 10^3/cmm (157-399); Red Blood Count 3.49 10^6/uL (3.85-5.65); White Blood Count 5.49 10^3/uL (3.29-11.43)
[2023-10-20 13:46] LABS: Alanine Aminotransferase 16 U/L (0-33); Albumin Level 3.7 g/dL (3.5-5.2); Alkaline Phosphatase 85 U/L (35-105); Anion Gap 11.1 (5-19); Aspartate Amino Transferase 21 U/L (0-32); Blood Urea Nitrogen 16 mg/dL (8-23); Calcium 9.6 mg/dL (8.5-10.5); Carbon Dioxide 29 mmol/L (22-29); Chloride 104 mmol/L (98-107); Globulin 3.9 g/dL (1.3-4.6); Glucose 87 mg/dL (65-115); Immunoglobulin IGA 76 mg/dL (70-400); Immunoglobulin IGG 868 mg/dL (700-1600); Lactate Dehydrogenase 132 U/L (135-214); Osmolality Calculated 291 mOsm/kg (285-295); Potassium 4.1 mmol/L (3.5-5.1); Sodium 140 mmol/L (136-145); Total Bilirubin 0.9 mg/dL (0.15-1.2); Total Protein 7.6 g/dL (6.6-8.7)
[2023-10-20 16:12] LABS: Immunoglobulin IGM 2434 mg/dL (40-230)
[2023-10-21 11:19] LABS: PROTEIN, TOTAL 7.5 g/dL (6.1-8.1)
[2023-10-21 17:45] LABS: ALBUMIN 3.6 g/dL (3.8-4.8); ALPHA 1 GLOBULIN 0.3 g/dL (0.2-0.3); ALPHA 2 GLOBULIN 0.7 g/dL (0.5-0.9); BETA 1 GLOBULIN 0.3 g/dL (0.4-0.6); BETA 2 GLOBULIN 0.2 g/dL (0.2-0.5); GAMMA GLOBULIN 2.5 g/dL (0.8-1.7)
== END 2023-11-15 23:59 | disposition home or self-care (01) ==
PROVIDERS: PCP Internal Medicine; Visit Provider Internal Medicine Medical Oncology
DX: C88.0 Waldenstrom macroglobulinemia (principal); D47.2 Monoclonal gammopathy; D64.9 Anemia, unspecified; Z79.899 Other long term (current) drug therapy
CPT/HCPCS: 36415; 80053; 82784; 83615; 84155; 84165; 85025; 99214

== ENCOUNTER 2023-11-20 08:17 | Outpatient (CLI) | payer MEDICARE, OTHER, SELFPAY ==
--- NOTE | 2023-11-20 08:28 | MM_ITS ---
WS: [id number] BILATERAL SCREENING DIGITAL TOMOSYNTHESIS MAMMOGRAM WITH CAD HISTORY: SCREENING COMPARISON: 11/18/2022 and 11/13/2021 Bilateral CC and MLO views with tomosynthesis and synthetic mammography submitted. Computer aided det ection analyzed. Breast composition: There are scattered areas of fibroglandular density. No suspicious masses, microc alcifications or architectural distortion. IMPRESSION: MM/[place] [id number] BI-RADS: 1-Negative FOLLOW UP: 1 Year Follow-up
== END 2023-11-20 08:18 | disposition home or self-care (01) ==
LOC: RAD 08:17
PROVIDERS: PCP Internal Medicine; Visit Provider Internal Medicine
DX: Z12.31 Encounter for screening mammogram for malignant neoplasm of breast (principal)
CPT/HCPCS: 77063; 77067

== ENCOUNTER 2024-01-26 12:38 | Oncology outpatient (recurring) (ONCR) | payer MEDICARE, OTHER, SELFPAY ==
[2024-01-19 13:52] LABS: Basophils % 0.3 %; Eosinophils # 0.1 10^3/uL (0.0-0.8); Eosinophils % 2.1 %; Hematocrit 37.2 % (36-47); Lymphocytes # 1.9 10^3/uL (0.8-4.8); Lymphocytes % 31.6 %; Mean Corpuscular HGB Conc 32.8 g/dL (30-55); Mean Corpuscular Hemoglobin 32.7 pg (27-33); Mean Corpuscular Volume 99.7 fl (85-98); Mean Platelet Volume 11.8 fL (7.4-10.4); Monocytes # 0.3 10^3/uL (0.2-0.9); Monocytes % 4.9 %; Neutrophils # 3.69 10^3/uL (1.8-7.7); Neutrophils % 60.8 %; Nucleated Red Blood Cells % 0 %; Platelet Count 104 10^3/cmm (157-399); Red Blood Count 3.73 10^6/uL (3.85-5.65); Red Cell Distribution Width 13.7 % (12.1-15.1); White Blood Count 6.08 10^3/uL (3.29-11.43)
[2024-01-19 14:33] LABS: Alanine Aminotransferase 16 U/L (0-33); Albumin Level 3.9 g/dL (3.5-5.2); Alkaline Phosphatase 82 U/L (35-105); Anion Gap 12.9 (5-19); Aspartate Amino Transferase 23 U/L (0-32); Blood Urea Nitrogen 12 mg/dL (8-23); Calcium 9.3 mg/dL (8.5-10.5); Carbon Dioxide 26 mmol/L (22-29); Chloride 106 mmol/L (98-107); Ferritin 68 ng/mL (15-150); Glucose 137 mg/dL (65-115); Iron 75 ug/dL (37-145); Lactate Dehydrogenase 160 U/L (135-214); Osmolality Calculated 294 mOsm/kg (285-295); Percent Saturation 30.2 % (20-50); Potassium 3.9 mmol/L (3.5-5.1); Sodium 141 mmol/L (136-145); Total Bilirubin 1.2 mg/dL (0.15-1.2); Total Iron Binding Capacity 248 mcg/dl; Total Protein 7.9 g/dL (6.6-8.7); Unsaturated Iron Binding 173 ug/dL (112-347); Vitamin B12 475 pg/mL (232-1245)
[2024-01-19 14:47] LABS: Folate Level > 20.0 ng/mL (4.8-37.3)
[2024-01-19 15:05] LABS: Immunoglobulin IGA 67 mg/dL (70-400); Immunoglobulin IGG 829 mg/dL (700-1600)
[2024-01-19 23:26] LABS: Immunoglobulin IGM 3558 mg/dL (40-230)
[2024-01-20 08:49] LABS: PROTEIN, TOTAL 7.8 g/dL (6.1-8.1)
[2024-01-21 00:15] LABS: ABNORMAL PROTEIN BAND 1 1.9 g/dL (NONE DETECTED); ALBUMIN 3.8 g/dL (3.8-4.8); ALPHA 1 GLOBULIN 0.3 g/dL (0.2-0.3); ALPHA 2 GLOBULIN 0.7 g/dL (0.5-0.9); BETA 1 GLOBULIN 0.4 g/dL (0.4-0.6); BETA 2 GLOBULIN 0.2 g/dL (0.2-0.5); GAMMA GLOBULIN 2.5 g/dL (0.8-1.7)
[2024-01-22 12:19] LABS: Soluble Transferrin Receptor 1.36 mg/L (0.76-1.76)
== END 2024-02-14 23:59 | disposition home or self-care (01) ==
PROVIDERS: Internal Medicine; PCP Internal Medicine; Visit Provider Internal Medicine Medical Oncology
DX: C88.0 Waldenstrom macroglobulinemia (principal); D47.2 Monoclonal gammopathy; D64.9 Anemia, unspecified
CPT/HCPCS: 36415; 80053; 82607; 82728; 82746; 82784; 83540; 83550; 83615; 84155; 84165; 84238; 84439; 84443; 85025; 86334; 99214

== ENCOUNTER 2024-04-20 09:34 | Outpatient (CLI) | payer MEDICARE, OTHER, SELFPAY ==
--- NOTE | 2024-04-20 09:38 | CTR_ITS ---
PROCEDURE INFORMATION: Exam: CT Chest With Contrast; Diagnostic Exam date and time: 04/20/2024 11:25 AM Age: 78 years old Clinical indication: Condition or disease; Other: Walstrom's macroglobulinemia; Prior surgery; Surgery date: 6+ months; Surgery type: Hyst; Additional info: Surveillance/walstrom's macroglobulinemia TECHNIQUE: Imaging protocol: Diagnostic computed tomography of the chest with contrast. Radiation optimization: All CT scans at this facility use at least one of these dose optimization techniques: automated exposure control; mA and/or kV adjustment per patient size (includes targeted exams where dose is matched to clinical indication); or iterative reconstruction. Contrast material: OMNI 350; Contrast volume: 100 ml; Contrast route: INTRAVENOUS (IV); COMPARISON: CT chest abdpel w/*[id number] 03/12/2023 4:26 PM RADIATION DOSE METRICS: Total DLP (mGy-cm): 644.97 FINDINGS: Thyroid: Small right thyroid nodule. Please correlate with ultrasound. Lungs: New 3 mm subsolid noncalcified nodule anterolateral left lower lobe image 28 axial series 4. Unchanged small amounts of scarring right lung. Tiny amount of new dependent subsegmental atelectasis right lung. Otherwise, unremarkable. Pleural spaces: Unremarkable. No pneumothorax. No pleural effusion. Heart: Unremarkable. No cardiomegaly. No pericardial effusion. Coronary arteries: Unchanged tiny amount of coronary artery calcification. Lymph nodes: No thoracic lymphadenopathy. Vasculature: Unremarkable. No aortic aneurysm. Bones/joints: Unchanged mild scoliosis. Increased mild kyphosis. Unchanged mild and moderate multilevel spondylosis. Unchanged partial ankylosis of the thoracic spine. Otherwise, unremarkable. Soft tissues: Otherwise, unremarkable visualized body wall. Otherwise, unremarkable soft tissues. is indicated. (Reference: Juan). 4. Additional details as above. COMMENTS: Consistent with the [employer]'s Incidental Findings Committee white paper (J Am Miladis Radiol 2015): In patients aged 35 years and older with an incidental thyroid nodule equal to or greater than 1.[address], MRI or extrathyroidal US, further evaluation with dedicated thyroid US is recommended for patients with normal life expectancy and without comorbidities. For smaller nodules without suspicious features, no further evaluation or follow up is recommended. REFERENCES: Juan Morales, et al. Guidelines for Management of Incidental Pulmonary Nodules Detected on CT Images: From the Fleischner Society 2017. Radiology. 2017;284(1):228-243. PROCEDURE INFORMATION: Exam: CT Abdomen With Contrast Exam date and time: 04/20/2024 11:25 AM Age: 78 years old Clinical indication: Condition or disease; Other: Walstrom's macroglobulinemia; Prior surgery; Surgery date: 6+ months; Surgery type: Hyst; Additional info: Surveillance/walstrom's macroglobulinemia TECHNIQUE: Imaging protocol: Computed tomography of the abdomen with contrast. Radiation optimization: All CT scans at this facility use at least one of these dose optimization techniques: automated exposure control; mA and/or kV adjustment per patient size (includes targeted exams where dose is matched to clinical indication); or iterative reconstruction. Contrast material: OMNI 350; Contrast volume: 100 ml; Contrast route: INTRAVENOUS (IV); COMPARISON: CT chest abdpel w/*[id number] 03/12/2023 4:26 PM RADIATION DOSE METRICS: Total DLP (mGy-cm): 644.97 FINDINGS: Liver: Unchanged abnormal liver, possibly due to cirrhosis. Gallbladder and bile ducts: Normal. No calcified stones. No ductal dilation. Pancreas: Unchanged possible involvement of the pancreatic head with neoplasm. Otherwise, unremarkable. Spleen: Mild splenomegaly is decreased. Otherwise, unremarkable. Adrenal glands: Normal. No mass. Kidneys and ureters: Unchanged renal cysts need no follow-up. Unchanged scarring both kidneys. Otherwise, unremarkable. Stomach and bowel: Unchanged large duodenal diverticulum. Again noted are multiple diverticula from the colon. No acute diverticulitis. Otherwise, unremarkable. Intraperitoneal space: Unchanged small amount of free fluid in the pelvis. No other free intraperitoneal fluid. No free air. Vasculature: Unchanged findings of portal hypertension including recanalization of the umbilical vein. Unchanged small amount of arterial calcification. Otherwise, unremarkable. Lymph nodes: Slight decrease in lymphadenopathy in the abdomen. No other lymphadenopathy. Reproductive: Unchanged hysterectomy. Bones/joints: Unchanged mild scoliosis. Unchanged mild and moderate multilevel lumbar spondylosis. Unchanged mild grade 1 spondylolisthesis of L5 anteriorly on S1. Otherwise, unremarkable. Soft tissues: Otherwise, unremarkable visualized body wall. Otherwise, unremarkable soft tissues. CT/CT chest abd w con*[id number] IMPRESSION: 1. Small right thyroid nodule. Please correlate with ultrasound. 2. No thoracic lymphadenopathy. 3. New 3 mm subsolid nodule in the left lower lobe. No routine follow-up IMPRESSION: 1. Slight decrease in lymphadenopathy in the abdomen. 2. Mild splenomegaly is decreased. 3. Additional details as above. Unchanged.
[2024-04-20] MEDS: iohexol 350 mg/mL 500 mL Btl (per mL) PO (11:07)
[2024-04-20 11:13] LABS: Basophils % 0.5 %; Eosinophils # 0.1 10^3/uL (0.0-0.8); Eosinophils % 1.9 %; Hematocrit 38.1 % (36-47); Lymphocytes # 1.8 10^3/uL (0.8-4.8); Mean Corpuscular HGB Conc 32.3 g/dL (30-55); Mean Corpuscular Hemoglobin 32.7 pg (27-33); Mean Corpuscular Volume 101.3 fl (85-98); Mean Platelet Volume 11.7 fL (7.4-10.4); Monocytes # 0.5 10^3/uL (0.2-0.9); Neutrophils # 3.36 10^3/uL (1.8-7.7); Neutrophils % 58.4 %; Nucleated Red Blood Cells % 0 %; Platelet Count 115 10^3/cmm (157-399); Red Blood Count 3.76 10^6/uL (3.85-5.65); Red Cell Distribution Width 13.3 % (12.1-15.1); White Blood Count 5.75 10^3/uL (3.29-11.43)
[2024-04-20] MEDS: iohexol 350 mg/mL 500 mL Btl (per mL) IV (11:31)
[2024-04-20 11:33] LABS: Alanine Aminotransferase 18 U/L (0-33); Albumin Level 3.9 g/dL (3.5-5.2); Alkaline Phosphatase 79 U/L (35-105); Aspartate Amino Transferase 26 U/L (0-32); Blood Urea Nitrogen 15 mg/dL (8-23); Calcium 9.6 mg/dL (8.5-10.5); Carbon Dioxide 27 mmol/L (22-29); Chloride 105 mmol/L (98-107); Globulin 4.3 g/dL (1.3-4.6); Glucose 64 mg/dL (65-115); Immunoglobulin IGA 73 mg/dL (70-400); Immunoglobulin IGG 847 mg/dL (700-1600); Lactate Dehydrogenase 185 U/L (135-214); Osmolality Calculated 295 mOsm/kg (285-295); Sodium 143 mmol/L (136-145); Total Bilirubin 1.6 mg/dL (0.15-1.2); Total Protein 8.2 g/dL (6.6-8.7)
[2024-04-20 13:32] LABS: Immunoglobulin IGM > 650 mg/dL (40-230)
[2024-04-21 13:13] LABS: PROTEIN, TOTAL 7.9 g/dL (6.1-8.1)
[2024-04-21 16:45] LABS: ABNORMAL PROTEIN BAND 1 1.8 g/dL (NONE DETECTED); ALPHA 1 GLOBULIN 0.3 g/dL (0.2-0.3); ALPHA 2 GLOBULIN 0.7 g/dL (0.5-0.9); BETA 1 GLOBULIN 0.4 g/dL (0.4-0.6); BETA 2 GLOBULIN 0.2 g/dL (0.2-0.5); GAMMA GLOBULIN 2.4 g/dL (0.8-1.7)
== END 2024-04-20 09:35 | disposition home or self-care (01) ==
LOC: RAD 09:34
PROVIDERS: PCP Internal Medicine; Visit Provider Nurse Practitioner Family
DX: C88.0 Waldenstrom macroglobulinemia (principal); R91.1 Solitary pulmonary nodule; E04.1 Nontoxic single thyroid nodule; R16.1 Splenomegaly, not elsewhere classified
CPT/HCPCS: 71260; 74160; 80053; 82784; 83615; 84155; 84165; 85025; Q9967

== ENCOUNTER 2024-05-02 07:55 | Oncology outpatient (recurring) (ONCR) | payer MEDICARE, OTHER, SELFPAY ==
[2024-04-20 11:42] LABS: Free T4 Free Thyroxine 1.21 ng/dL (0.82-1.77)
[2024-05-03 15:09] LABS: CREATININE, 24 HOUR URINE 0.61 g/24 h (0.50-2.15); PROTEIN, TOTAL, 24 HR UR NOTE mg/24 h (<150); Protein/Creatinine Ratio NOTE (<0.150); Protein/Creatinine Ratio NOTE mg/g creat (<150)
[2024-05-05 10:44] LABS: ALBUMIN 0 %; ALPHA-1-GLOBULINS 0 %; ALPHA-2-GLOBULINS 0 %; BETA GLOBULINS 0 %; GAMMA GLOBULINS 0 %
--- NOTE | 2024-05-12 08:00 | US_ITS ---
WS: [email or web address] ULTRASOUND THYROID TECHNIQUE: Ultrasound of the thyroid. CLINICAL INFORMATION: MACROGLOBULINEAMIA COMPARISON: None. FINDINGS: Thyroid: Right and left thyroid lobes are normal in size with heterogeneous echotexture Right thyroid lobe: 4.4 cm x 1.0 cm x 1.6 cm Hypoechoic solid RIGHT mid thyroid nodule measuring 1.3 x 0.8 x 1.5 cm with hypoechoic halo. This humberto ears well-circumscribed. Small punctate echogenic foci. TIRADS Category 5: Highly suspicious (total points = 7) FNA if 1 cm Smaller solid hypoechoic nodule RIGHT inferior thyroid measuring 6 x 4 x 9 mm Left thyroid lobe: 2.9 cm x 1.0 cm x 1.0 cm. Isthmus: 0.3 mm. Cervical lymphadenopathy: None. US/US thyroid [id number] IMPRESSION: 1. Heterogeneous thyroid echotexture 2. Small solid hypoechoic nodule RIGHT inferior thyroid measuring 0.6 x 0.4 x 0.9 cm 3. Hypoechoic solid RIGHT mid thyroid nodule measuring 1.3 x 0.8 x 1.5 cm with hypoechoic halo and small punctate echogenic foci.recommend further evaluation with FNA. TIRADS Category 5: Highly suspicious (total points = 7) FNA if e1 cm
== END 2024-05-15 23:59 | disposition home or self-care (01) ==
LOC: RAD 05-12 07:06 → ONCMED 05-12 07:06
PROVIDERS: Internal Medicine Medical Oncology; PCP Internal Medicine; Visit Provider Internal Medicine
DX: C88.0 Waldenstrom macroglobulinemia (principal); E04.2 Nontoxic multinodular goiter
CPT/HCPCS: 36415; 76536; 82570; 84166; 84439; 84443; 86335; 99213

== ENCOUNTER 2024-07-13 14:00 | Oncology outpatient (recurring) (ONCR) | payer MEDICARE, OTHER, SELFPAY ==
--- OUTSIDE RECORDS SUMMARY | 2024-07-13 14:02 | XMS_ITS ---
Author Name Unknown Organization Formerly [facility], later [facility] ALLERGIES AND ADVERSE REACTIONS No information ASSESSMENT No information CHIEF COMPLAINT No information Medications Date Medication Stopdate Stopreason Active Ndccode Drugcode Ispr escription Srcstatus 06/15 08:50 :25 allopurinol 300 mg tablet 3 00:00:00 Other 0 [id number] 01 False Inactive 10/05 08:53 :02 prochlorper azine maleate 10 mg tablet 3 00:00:00 Other 0 [id number] 06 False Inactive OBJECTIVE DATA No information PHYSICAL EXAMINATION No information TREATMENT PLAN No information PROBLEMS No information RESULTS No information REVIEW OF SYSTEMS No information SUBJECTIVE DATA No information VITAL SIGNS No information
--- OUTSIDE RECORDS SUMMARY | 2024-07-13 14:02 | XMS_ITS ---
Author Name Unknown Organization Unknown ALLERGIES AND ADVERSE REACTIONS No information ASSESSMENT No information CHIEF COMPLAINT No information MEDICATIONS No information OBJECTIVE DATA No information PHYSICAL EXAMINATION No information TREATMENT PLAN Planned Care Start Date Provider Encounter for Check-up [id number] [facility] PROBLEMS No information RESULTS No information REVIEW OF SYSTEMS No information SUBJECTIVE DATA No information VITAL SIGNS No information
[2024-07-13 15:04] LABS: Basophils % 0.3 %; Eosinophils # 0.1 10^3/uL (0.0-0.8); Eosinophils % 1.7 %; Hematocrit 36.4 % (36-47); Lymphocytes # 1.9 10^3/uL (0.8-4.8); Lymphocytes % 32.9 %; Mean Corpuscular HGB Conc 32.7 g/dL (30-55); Mean Corpuscular Hemoglobin 32.5 pg (27-33); Mean Corpuscular Volume 99.5 fl (85-98); Mean Platelet Volume 12.1 fL (7.4-10.4); Monocytes # 0.4 10^3/uL (0.2-0.9); Monocytes % 7.2 %; Neutrophils # 3.38 10^3/uL (1.8-7.7); Neutrophils % 57.7 %; Nucleated Red Blood Cells % 0 %; Platelet Count 107 10^3/cmm (157-399); Red Blood Count 3.66 10^6/uL (3.85-5.65); Red Cell Distribution Width 13.3 % (12.1-15.1); White Blood Count 5.86 10^3/uL (3.29-11.43)
[2024-07-13 15:50] LABS: Alanine Aminotransferase 16 U/L (0-33); Alkaline Phosphatase 71 U/L (35-105); Anion Gap 16.3 (5-19); Aspartate Amino Transferase 21 U/L (0-32); Blood Urea Nitrogen 19 mg/dL (8-23); Calcium 9.7 mg/dL (8.5-10.5); Carbon Dioxide 24 mmol/L (22-29); Chloride 105 mmol/L (98-107); Ferritin 56 ng/mL (15-150); Globulin 3.8 g/dL (1.3-4.6); Glucose 85 mg/dL (65-115); Iron 84 ug/dL (37-145); Lactate Dehydrogenase 151 U/L (135-214); Osmolality Calculated 294 mOsm/kg (285-295); Percent Saturation 30.9 % (20-50); Potassium 4.3 mmol/L (3.5-5.1); Sodium 141 mmol/L (136-145); Total Bilirubin 1.4 mg/dL (0.15-1.2); Total Iron Binding Capacity 271 mcg/dl; Total Protein 7.8 g/dL (6.6-8.7); Unsaturated Iron Binding 187 ug/dL (112-347); Vitamin B12 446 pg/mL (232-1245)
[2024-07-13 16:14] LABS: Immunoglobulin IGA 68 mg/dL (70-400); Immunoglobulin IGG 860 mg/dL (700-1600)
[2024-07-13 17:12] LABS: Folate Level > 20.0 ng/mL (4.8-37.3)
[2024-07-14 08:49] LABS: PROTEIN, TOTAL 7.6 g/dL (6.1-8.1)
[2024-07-15 02:47] LABS: Immunoglobulin IGM 2401 mg/dL (40-230)
[2024-07-15 11:48] LABS: ABNORMAL PROTEIN BAND 1 1.9 g/dL (NONE DETECTED); ALBUMIN 3.7 g/dL (3.8-4.8); ALPHA 1 GLOBULIN 0.3 g/dL (0.2-0.3); ALPHA 2 GLOBULIN 0.7 g/dL (0.5-0.9); BETA 1 GLOBULIN 0.4 g/dL (0.4-0.6); BETA 2 GLOBULIN 0.2 g/dL (0.2-0.5); GAMMA GLOBULIN 2.3 g/dL (0.8-1.7)
[2024-07-17 02:20] LABS: Methylmalonic Acid 219 nmol/L (69-390)
== END 2024-07-16 23:59 | disposition home or self-care (01) ==
PROVIDERS: PCP Internal Medicine; Visit Provider Internal Medicine
DX: C88.0 Waldenstrom macroglobulinemia (principal); D64.9 Anemia, unspecified
CPT/HCPCS: 36415; 80053; 82607; 82728; 82746; 82784; 83540; 83550; 83615; 83921; 84155; 84165; 85025; 86334

== ENCOUNTER 2024-07-19 11:38 | Oncology outpatient (recurring) (ONCR) | payer MEDICARE, OTHER, SELFPAY | END 2024-08-15 23:59 | disposition home or self-care (01) | PROVIDERS: PCP Internal Medicine; Visit Provider Internal Medicine | DX: C88.0 Waldenstrom macroglobulinemia (principal); Z79.69 Long term (current) use of other immunomodulators and immunosuppressants; E04.1 Nontoxic single thyroid nodule | CPT/HCPCS: 99214 ==

== ENCOUNTER 2024-07-27 18:36 | Emergency (ER) | payer MEDICARE, OTHER, SELFPAY ==
[2024-07-27 18:52] VITALS: BP 188/78; PULSE 100; RESP 14; TEMP 36.9; O2SAT 96; BMI 26.7
--- NOTE | 2024-07-27 19:21 | W.ED.ANIMALB ---
HPI - Animal Bite General: Chief Complaint: Animal Bite Stated Complaint: right hand cat clawed Time Seen by Provider: 07/27/24 18:46 Source: patient Mode of arrival: ambulatory Limitations: no limitations History of Present Illness: Patient is a nice 79-year-old female presents to ED today with complaint of cat bite to her right hand. Patient states her cat was playing and believes her tooth punctured the dorsum of her right hand. Last tetanus is unknown. Patient states the small puncture wound has continued to ooze. Cat is an inside cat and up-to-date on immunizations. complaint: animal bite Onset (ago): hour(s) Animal: cat Description of animal: household pet, immunizations UTD and appeared well Mechanism: bite Location - Extremities: Right: hand Context: playing with animal Associated symptoms: Reports no associated symptoms Treatments prior to arrival: wound dressing(s) Related Data Home Medications Medication Instructions Recorded Confirmed calcium carbonate 600 mg PO DAILY 02/24/23 07/19/24 wivdmslsqzzn-ribfsppt-oypmjw tablet 1 tab PO DAILY 02/24/23 07/19/24 quinine-vitamin E capsule 1 cap PO DAILY PRN 05/05/23 07/19/24 Previous Rx's Medication Instructions Recorded prochlorperazine maleate 10 mg 10 mg PO Q6H PRN Mild Nausea #30 05/06/23 tablet (Compazine) tabs zanubrutinib 80 mg capsule 160 mg (2 x 80 mg) PO BID #120 caps 01/26/24 (Brukinsa) cefuroxime axetil 500 mg tablet 500 mg PO BID 7 days #14 tabs 07/27/24 metronidazole 500 mg tablet 500 mg PO TID 7 days #21 tabs 07/27/24 Allergies Allergy/AdvReac Type Severity Reaction Status Date / Time poison shikha extract Allergy Severe ALGY-Rash Verified 07/19/24 12:02 poison oak extract Allergy Severe ALGY-Rash Verified 07/19/24 12:02 amoxicillin Allergy ALGY-Rash Verified 07/19/24 12:02 Ivory Soap Allergy Severe ALGY-Rash Uncoded 07/19/24 12:02 Review of Systems Musc: Denies: extremity pain, extremity swelling, joint pain or joint swelling Skin/Breast: Reports: other (cat bite to dorsal R hand) Neuro: Denies: numbness in extremities or sensory changes PFSH ED PFSH: Medical History Liver cirrhosis Waldenstroms macroglobulinemia History of nephrolithiasis Surgical History History of bone marrow biopsy (03/02/23) History of extraction of renal calculus History of hysterectomy 1999 History of tonsillectomy 1950 History of colonoscopy 05/2022 Status post arthroscopic surgery of right knee Family History Father CAD (coronary artery disease) Cardiac arrest, coronary artery disease, congestive heart failure Cancer Melanoma to head Chronic kidney disease (CKD) Mother CAD (coronary artery disease) Aortic stenosis Brother Cancer Disseminated carcinomatolsis and carcinoma of liver- at age 45 on 01/02/96 Other brother - Testicular cancer with surgery and radiation therapy - survivior, no furtehr signs of cancer Denies family history of Diabetes Clotting disorder Dementia Hyperlipidemia Psychiatric illness Suicide Anesthesia complication Bleeding disorder Lung disease Hypertension Stroke Social History Smoking and tobacco/nicotine status: unknown if used tobacco/nicotine Alcohol intake: never Physical Exam Const: COMMON NORMALS: no acute distress, no limitations, alert and well nourished Extremity: GENERAL: Yes normal exam except as noted RIGHT UPPER EXTREMITY: Yes hand & digits Right hand and digits: Yes ROM exam (normal), Yes neurovascular exam (normal) and Yes tendon exam (normal) OTHER: superficial small puncture site R dorsal hand; underlying hematoma; oozing which was controlled with surgicel and direct pressure; no redness/streaking/drainage; no pain Neuro: COMMON NORMALS: moves all extremities, no focal motor deficits and no sensory deficits noted SENSORIUM/ORIENTATION: Yes alert Skin: NARRATIVE SKIN EXAM: see above Course Vital Signs: Vital signs: Vital Signs Temperature 98.5 F 07/27/24 18:52 Pulse Rate 100 07/27/24 18:52 Respiratory Rate 14 07/27/24 18:52 Blood Pressure 188/78 07/27/24 18:52 Pulse Oximetry 96 07/27/24 18:52 Oxygen Delivery Me thod Room Air 07/27/24 18:52 MDM - Animal Bite Medical Decision Making Tetanus updated. Wound was controlled with Surgicel and direct pressure. Patient will be started on antibiotics this evening as pharmacies are closed. She has an allergy to amoxicillin so we will place her on Cefuroxime and Flagyl for coverage. Wound care/infection precautions discussed. Differential Diagnosis Likely bite by animal and cat bite Medical Records I reviewed the patient's medical records. No radiology studies performed this visit Discharge Plan Discharge Patient Disposition: Home Clinical Impression: Cat bite of left hand Condition: Stable Prescriptions: New cefuroxime axetil 500 mg tablet 500 mg PO BID 7 Days Qty: 14 0RF metronidazole 500 mg tablet 500 mg PO TID 7 Days Qty: 21 0RF No Action prochlorperazine maleate [Compazine] 10 mg tablet 10 mg PO Q6H PRN (Reason: Mild Nausea) Qty: 30 3RF uikjezsqneyq-cbwzckdd-bqzmhc Tablet 1 tab PO DAILY calcium carbonate 600 mg calcium (1,500 mg) tablet 600 mg PO DAILY quinine-vitamin E Capsule 1 cap PO DAILY PRN Brukinsa 80 mg capsule 160 mg PO BID Qty: 120 6RF Discharge Orders: Discharge ED (Routine); Ordered 07/27/24 Ordered By: Steph Healy Referrals: Josefa Hansen MD [Primary Care Provider] - Patient Instructions: Animal Bite (ED) Activity Restrictions/Additional Instructions: Keep wound clean with warm soap and water multiple times a day. Monitor for signs of infection such as redness, swelling, streaking up your hand or arm, fevers, purulent drainage, generally feeling unwell, or any other concerns you may have. Please seek medical reevaluation if these occur. You have been given antibiotics prior to discharge. Please fill your prescriptions in the morning and start them as instructed. Tetanus has been updated. Coding Level of Care Code [employer] Consultant for Shaggy Ortega
[2024-07-27] MEDS: metroNIDAZOLE 500 MG Tablet PO (19:34)
[2024-07-27] MEDS: cefUROXime 250 mg Tablet 500 MG PO (19:35)
[2024-07-27] MEDS: tetanus-dipt-pertussis 0.5 mL SDV IM (19:35)
[2024-07-27 20:10] VITALS: BP 160/71; PULSE 95; RESP 16; O2SAT 98
== END 2024-07-27 20:13 | disposition home or self-care (01) ==
PROVIDERS: Emergency Provider Physician Assistant; PCP Internal Medicine
DX: S60.571A Other superficial bite of hand of right hand, initial encounter (principal); W55.01XA Bitten by cat, initial encounter; Z23 Encounter for immunization
CPT/HCPCS: 90471; 90715; 99283

== ENCOUNTER 2024-10-07 14:30 | Outpatient (CLI) | payer MEDICARE, OTHER, SELFPAY ==
--- NOTE | 2024-10-07 14:33 | XR_ITS ---
WS: [id number] SCREENING DEXA SCAN [employer] CLINICAL INFORMATION: ASYMPTOMATIC POST MENOPAUSAL COMPARISON: 2020 FINDINGS: The L1-L4 bone mineral density measures 1.035 g/cm2. This corresponds to a T score score of -1.2 and Z score of 0.7. Left femoral neck bone mineral density measures 0.801 g/cm2. This corresponds to a T score of -1.6 an d Z score of 0.3. Right femoral neck bone mineral density measures 0.808 g/cm2. This corresponds to a T score -1.6of an d Z score of 0.4. Mean femoral neck bone mineral density measures 0.804 g/cm2. This corresponds to a T score of -1.6 an d Z score of 0.4. XR/XR DEXA axial skeleton* [id number] IMPRESSION: Osteopenia lumbar spine. Osteopenia femoral necks. Patient's FRAX calculated 10 year probability for major osteoporotic fracture i s 14.9% and osteoporotic hip fracture is 4.2%. Bone mineral density lumbar spine decreased -4.6% Bone mineral density femoral necks decreased -8.1%
== END 2024-10-07 14:31 | disposition home or self-care (01) ==
LOC: RAD 14:31
PROVIDERS: PCP Internal Medicine; Visit Provider Internal Medicine
DX: Z13.820 Encounter for screening for osteoporosis (principal); Z78.0 Asymptomatic menopausal state; M85.80 Other specified disorders of bone density and structure, unspecified site
CPT/HCPCS: 77080

== ENCOUNTER 2024-10-10 13:23 | Oncology outpatient (recurring) (ONCR) | payer MEDICARE, OTHER, SELFPAY ==
[2024-10-10 13:58] LABS: Basophils % 0.6 %; Eosinophils # 0.1 10^3/uL (0.0-0.8); Eosinophils % 1.6 %; Lymphocytes # 1.8 10^3/uL (0.8-4.8); Lymphocytes % 28.9 %; Mean Corpuscular HGB Conc 33.3 g/dL (30-55); Mean Corpuscular Hemoglobin 31.8 pg (27-33); Mean Corpuscular Volume 95.5 fl (85-98); Mean Platelet Volume 11.8 fL (7.4-10.4); Monocytes # 0.5 10^3/uL (0.2-0.9); Monocytes % 7.9 %; Neutrophils # 3.76 10^3/uL (1.8-7.7); Neutrophils % 60.7 %; Nucleated Red Blood Cells % 0 %; Platelet Count 117 10^3/cmm (157-399); Red Blood Count 3.77 10^6/uL (3.85-5.65); Red Cell Distribution Width 13.2 % (12.1-15.1)
[2024-10-10 14:17] LABS: Alanine Aminotransferase 17 U/L (0-33); Albumin Level 3.8 g/dL (3.5-5.2); Alkaline Phosphatase 70 U/L (35-105); Anion Gap 16.1 (5-19); Aspartate Amino Transferase 24 U/L (0-32); Blood Urea Nitrogen 19 mg/dL (8-23); Calcium 9.3 mg/dL (8.5-10.5); Carbon Dioxide 25 mmol/L (22-29); Chloride 103 mmol/L (98-107); Globulin 3.8 g/dL (1.3-4.6); Glucose 135 mg/dL (65-115); Immunoglobulin IGA 63 mg/dL (70-400); Immunoglobulin IGG 832 mg/dL (700-1600); Osmolality Calculated 294 mOsm/kg (285-295); Potassium 4.1 mmol/L (3.5-5.1); Sodium 140 mmol/L (136-145); Total Bilirubin 1.2 mg/dL (0.15-1.2); Total Protein 7.6 g/dL (6.6-8.7)
[2024-10-10 14:31] LABS: Immunoglobulin IGM 2358 mg/dL (40-230)
[2024-10-11 05:20] LABS: PROTEIN, TOTAL 7.7 g/dL (6.1-8.1)
[2024-10-11 14:14] LABS: ABNORMAL PROTEIN BAND 1 1.7 g/dL (NONE DETECTED); ALPHA 1 GLOBULIN 0.2 g/dL (0.2-0.3); ALPHA 2 GLOBULIN 0.7 g/dL (0.5-0.9); BETA 1 GLOBULIN 0.4 g/dL (0.4-0.6); BETA 2 GLOBULIN 0.2 g/dL (0.2-0.5); GAMMA GLOBULIN 2.2 g/dL (0.8-1.7)
== END 2024-10-15 23:59 | disposition home or self-care (01) ==
LOC: ONCMED 13:23
PROVIDERS: Nurse Practitioner Family; PCP Internal Medicine; Visit Provider Internal Medicine
DX: C88.00 Waldenstrom macroglobulinemia not having achieved remission (principal)
CPT/HCPCS: 36415; 80053; 82784; 84155; 84165; 85025

== ENCOUNTER 2024-10-19 14:20 | Oncology outpatient (recurring) (ONCR) | payer MEDICARE, OTHER, SELFPAY ==
--- NOTE | 2024-10-19 15:38 | XR_ITS ---
WS: [id number] XR lumbar spine 2-3V* [id number] REASON FOR EXAM: low back pain FINDINGS: Moderate rotatory levoscoliosis. Mild No significant vertebral body abnormality. Mild to moderate vertebral body osteophytosis L1-L5. The intervertebral disc spaces L1-S1 are narrowed most significantly at L1-L2, L4-L5, and L5-S1. No spondylolysis identified. 3 to 4 mm of anterolisthesis of L3 in relation to L2 and L4. XR/XR lumbar spine 2-3V* [id number] IMPRESSION: Multilevel degenerative spondylosis of the lumbar spine as above.
== END 2024-11-15 23:59 | disposition home or self-care (01) ==
PROVIDERS: PCP Internal Medicine; Visit Provider Internal Medicine
DX: C88.00 Waldenstrom macroglobulinemia not having achieved remission (principal); E03.9 Hypothyroidism, unspecified; M54.50 Low back pain, unspecified
CPT/HCPCS: 72100; 99213

== ENCOUNTER 2024-11-21 10:35 | Outpatient (CLI) | payer MEDICARE, OTHER, SELFPAY ==
--- NOTE | 2024-11-21 10:36 | MM_ITS ---
WS: [id number] BILATERAL SCREENING DIGITAL TOMOSYNTHESIS MAMMOGRAM WITH CAD HISTORY: SCREENING COMPARISON: 11/20/2023, 11/18/2022 Bilateral CC and MLO views with tomosynthesis and synthetic mammography submitted. Computer aided det ection analyzed. Breast composition: The breasts are almost entirely fatty. No suspicious masses, microcalcifications or architectural distortion. Benign calcifications central LEFT breast. MM/MM scr BI tomosynthesis [id number] IMPRESSION: BI-RADS: 2 - Benign. FOLLOW UP: 1 Year Follow-up
== END 2024-11-21 10:36 | disposition home or self-care (01) ==
LOC: RAD 10:35
PROVIDERS: PCP Internal Medicine; Visit Provider Internal Medicine
DX: Z12.31 Encounter for screening mammogram for malignant neoplasm of breast (principal); R92.313 Mammographic fatty tissue density, bilateral breasts; R92.1 Mammographic calcification found on diagnostic imaging of breast
CPT/HCPCS: 77063; 77067

== ENCOUNTER 2025-01-11 13:35 | Oncology outpatient (recurring) (ONCR) | payer MEDICARE, OTHER, SELFPAY ==
[2025-01-11 14:05] LABS: Basophils % 0.5 %; Eosinophils # 0.2 10^3/uL (0.0-0.8); Eosinophils % 2.9 %; Hematocrit 36.6 % (36-47); Lymphocytes # 1.5 10^3/uL (0.8-4.8); Lymphocytes % 27.5 %; Mean Corpuscular HGB Conc 32.8 g/dL (30-55); Mean Corpuscular Hemoglobin 31.8 pg (27-33); Mean Corpuscular Volume 97.1 fl (85-98); Mean Platelet Volume 11.8 fL (7.4-10.4); Monocytes # 0.4 10^3/uL (0.2-0.9); Monocytes % 7.2 %; Neutrophils # 3.43 10^3/uL (1.8-7.7); Neutrophils % 61.7 %; Nucleated Red Blood Cells % 0 %; Platelet Count 105 10^3/cmm (157-399); Red Blood Count 3.77 10^6/uL (3.85-5.65); Red Cell Distribution Width 13.1 % (12.1-15.1); White Blood Count 5.56 10^3/uL (3.29-11.43)
[2025-01-11 14:21] LABS: Alanine Aminotransferase 15 U/L (0-33); Albumin Level 3.7 g/dL (3.5-5.2); Alkaline Phosphatase 81 U/L (35-105); Anion Gap 15.1 (5-19); Aspartate Amino Transferase 22 U/L (0-32); Blood Urea Nitrogen 21 mg/dL (8-23); Calcium 9.4 mg/dL (8.5-10.5); Carbon Dioxide 25 mmol/L (22-29); Chloride 107 mmol/L (98-107); Globulin 3.9 g/dL (1.3-4.6); Glucose 124 mg/dL (65-115); Immunoglobulin IGA 63 mg/dL (70-400); Immunoglobulin IGG 838 mg/dL (700-1600); Osmolality Calculated 300 mOsm/kg (285-295); Potassium 4.1 mmol/L (3.5-5.1); Sodium 143 mmol/L (136-145); Total Bilirubin 1.1 mg/dL (0.15-1.2); Total Protein 7.6 g/dL (6.6-8.7)
[2025-01-11 14:33] LABS: Immunoglobulin IGM 2231 mg/dL (40-230)
[2025-01-12 06:39] LABS: PROTEIN, TOTAL 7.5 g/dL (6.1-8.1)
[2025-01-12 21:05] LABS: ABNORMAL PROTEIN BAND 1 1.7 g/dL (NONE DETECTED); ALPHA 1 GLOBULIN 0.2 g/dL (0.2-0.3); ALPHA 2 GLOBULIN 0.7 g/dL (0.5-0.9); BETA 1 GLOBULIN 0.4 g/dL (0.4-0.6); BETA 2 GLOBULIN 0.2 g/dL (0.2-0.5); GAMMA GLOBULIN 2.1 g/dL (0.8-1.7)
== END 2025-01-13 23:59 | disposition home or self-care (01) ==
LOC: ONCMED 13:36
PROVIDERS: Nurse Practitioner Family; PCP Internal Medicine; Visit Provider Internal Medicine
DX: C88.00 Waldenstrom macroglobulinemia not having achieved remission (principal)
CPT/HCPCS: 36591; 80053; 82784; 84155; 84165; 85025

== ENCOUNTER 2025-01-18 13:13 | Oncology outpatient (recurring) (ONCR) | payer MEDICARE, OTHER, SELFPAY | END 2025-02-13 23:59 | disposition home or self-care (01) | PROVIDERS: PCP Internal Medicine; Visit Provider Internal Medicine | DX: C88.00 Waldenstrom macroglobulinemia not having achieved remission (principal); E04.1 Nontoxic single thyroid nodule; Z79.899 Other long term (current) drug therapy; D64.9 Anemia, unspecified; M17.0 Bilateral primary osteoarthritis of knee; M16.0 Bilateral primary osteoarthritis of hip | CPT/HCPCS: 99213 ==

== ENCOUNTER 2025-02-14 14:31 | Outpatient (CLI) | payer MEDICARE, OTHER, SELFPAY ==
--- NOTE | 2025-02-14 14:38 | XRR_ITS ---
PROCEDURE INFORMATION: Exam: XR Left Hand Exam date and time: 02/14/2025 2:44 PM Age: 79 years old Clinical indication: Injury or trauma; Other: Cat bite; Injury date: 02/13/25; Injury details: Bit by cat on posterior side of left hand/wrist yesterday, swelling and pain since; HX of emmanuel strums macroglobulinemia, bone marrow; Additional info: Bitten by cat, left hand TECHNIQUE: Imaging protocol: Radiologic exam of the left hand. Views: 3 or more views. COMPARISON: No relevant prior studies available. FINDINGS: Bones/joints: No acute fracture or dislocation. No erosive or aggressive osseous lesion. Mild/moderate degenerative changes of the IP joints. Soft tissues: No evidence of soft tissue gas or radiopaque foreign body. Mild irregularity at the dorsal aspect of the hand on lateral view may represent laceration, can correlate clinically. XR/XR hand LT min 3V* [id number] IMPRESSION: 1. No acute osseous abnormality. 2. No evidence of soft tissue gas or radiopaque foreign body. Mild irregularity at the dorsal aspect of the hand may represent laceration, can correlate clinically.
== END 2025-02-14 14:32 | disposition home or self-care (01) ==
PROVIDERS: PCP Internal Medicine; Visit Provider Nurse Practitioner Family
DX: R93.6 Abnormal findings on diagnostic imaging of limbs (principal); W55.01XA Bitten by cat, initial encounter
CPT/HCPCS: 73130

== ENCOUNTER 2025-04-12 13:38 | Oncology outpatient (recurring) (ONCR) | payer MEDICARE, OTHER, SELFPAY ==
[2025-04-12 14:26] LABS: Reticulocyte % 1.5 % (0.5-2.0)
[2025-04-12 14:27] LABS: Basophils # 0.1 10^3/uL (0.0-0.1); Basophils % 0.8 %; Eosinophils # 0.1 10^3/uL (0.0-0.8); Eosinophils % 1.4 %; Hematocrit 40.3 % (36-47); Lymphocytes # 1.6 10^3/uL (0.8-4.8); Lymphocytes % 24.3 %; Mean Platelet Volume 12.1 fL (7.4-10.4); Monocytes # 0.5 10^3/uL (0.2-0.9); Neutrophils # 4.33 10^3/uL (1.8-7.7); Neutrophils % 65.2 %; Nucleated Red Blood Cells % 0 %; Platelet Count 122 10^3/cmm (157-399); Red Blood Count 4.03 10^6/uL (3.85-5.65); Red Cell Distribution Width 13.3 % (12.1-15.1); White Blood Count 6.63 10^3/uL (3.29-11.43)
[2025-04-12 14:36] LABS: Erythrocyte Sedimentation Rate 57 mm/hr (0-15)
[2025-04-12 14:50] LABS: Alanine Aminotransferase 23 U/L (0-33); Albumin Level 3.8 g/dL (3.5-5.2); Alkaline Phosphatase 82 U/L (35-105); Anion Gap 19.3 (5-19); Aspartate Amino Transferase 26 U/L (0-32); Blood Urea Nitrogen 20 mg/dL (8-23); Calcium 9.6 mg/dL (8.5-10.5); Carbon Dioxide 24 mmol/L (22-29); Chloride 103 mmol/L (98-107); Globulin 3.8 g/dL (1.3-4.6); Glucose 124 mg/dL (65-115); Iron 106 ug/dL (37-145); Osmolality Calculated 298 mOsm/kg (285-295); Percent Saturation 36.3 % (20-50); Phosphorus 3.5 mg/dL (2.5-4.5); Potassium 4.3 mmol/L (3.5-5.1); Sodium 142 mmol/L (136-145); Total Bilirubin 1.5 mg/dL (0.15-1.2); Total Iron Binding Capacity 292 mcg/dl; Total Protein 7.6 g/dL (6.6-8.7); Unsaturated Iron Binding 186 ug/dL (112-347); Uric Acid 5.5 mg/dL (2.4-5.7)
[2025-04-12 15:04] LABS: Vitamin B12 482 pg/mL (232-1245)
[2025-04-12 15:12] LABS: Lactate Dehydrogenase 151 U/L (135-214)
[2025-04-12 15:26] LABS: Folate Level > 20.0 ng/mL (4.8-37.3)
[2025-04-12 15:28] LABS: Immunoglobulin IGA 68 mg/dL (70-400); Immunoglobulin IGG 808 mg/dL (700-1600)
[2025-04-12 15:40] LABS: Immunoglobulin IGM 2044 mg/dL (40-230)
[2025-04-13 07:09] LABS: PROTEIN, TOTAL 7.9 g/dL (6.1-8.1)
[2025-04-14 15:30] LABS: ABNORMAL PROTEIN BAND 1 1.7 g/dL (NONE DETECTED); ALBUMIN 4.1 g/dL (3.8-4.8); ALPHA 1 GLOBULIN 0.3 g/dL (0.2-0.3); ALPHA 2 GLOBULIN 0.7 g/dL (0.5-0.9); BETA 1 GLOBULIN 0.4 g/dL (0.4-0.6); BETA 2 GLOBULIN 0.2 g/dL (0.2-0.5); GAMMA GLOBULIN 2.2 g/dL (0.8-1.7)
== END 2025-04-15 23:59 | disposition home or self-care (01) ==
LOC: ONCMED 13:38
PROVIDERS: PCP Internal Medicine; Visit Provider Internal Medicine
DX: E04.1 Nontoxic single thyroid nodule (principal); C88.00 Waldenstrom macroglobulinemia not having achieved remission
CPT/HCPCS: 36415; 80053; 82607; 82746; 82784; 83010; 83540; 83550; 83615; 83883; 84100; 84155; 84165; 84550; 85025; 85045; 85651; 86140; 86334

== ENCOUNTER 2025-04-19 12:04 | Oncology outpatient (recurring) (ONCR) | payer MEDICARE, OTHER, SELFPAY | END 2025-05-15 23:59 | disposition home or self-care (01) | PROVIDERS: PCP Internal Medicine; Visit Provider Internal Medicine | DX: C88.00 Waldenstrom macroglobulinemia not having achieved remission (principal); E04.1 Nontoxic single thyroid nodule; R03.0 Elevated blood-pressure reading, without diagnosis of hypertension; M16.0 Bilateral primary osteoarthritis of hip; M17.0 Bilateral primary osteoarthritis of knee; M85.89 Other specified disorders of bone density and structure, multiple sites; Z79.899 Other long term (current) drug therapy | CPT/HCPCS: 99214 ==

== ENCOUNTER 2025-05-24 12:26 | Oncology outpatient (recurring) (ONCR) | payer MEDICARE, OTHER, SELFPAY ==
--- NOTE | 2025-05-24 12:32 | USCV_ITS ---
Amita Chen Age: 80 Gender: F : 1945 Exam Date: 05/24/2025 12:45 Ordering Phys: Josefa Hansen MD Technologist: [place] [facility] [place]: murmur BP: 120 / 70 HR: 74 Rhythm: Sinus Technical Quality: Adequate MEASUREMENTS (Male / Female) Normal Values 2D ECHO LV Diastolic Diameter PLAX 3.8 cm 4.2 - 5.9 / 3.9 - 5.3 cm IVS Diastolic Thickness 1.2 cm 0.6 - 1.0 / 0.6 - 0.9 cm IVS Systolic Thickness 1.3 cm LVPW Diastolic Thickness 1.0 cm 0.6 - 1.0 / 0.6 - 0.9 cm LVPW Systolic Thickness 1.4 cm LVOT Diameter 2.0 cm LV Ejection Fraction 2D Teich 64.0 % LV Ejection Fraction MOD 4C 73.7 % LV Ejection Fraction MOD 2C 74.5 % LV Ejection Fraction 2C AL 75.5 % LA Diameter 3.6 cm RA Systolic Volume 4C AL 32.2 ml RA Systolic Volume 4C MOD 30.8 ml Aorta at Sinotubular Diameter 2.2 cm IVC Diameter 1.7 cm M-MODE LA Ao Ratio MM 1.1 AV Cusp Separation MM 1.8 cm DOPPLER AV Peak Velocity 222.0 cm/s LVOT Peak Velocity 84.0 cm/s AV Area Cont Eq vti 1.5 cm squared AV Area Cont Eq pk 1.2 cm squared MV Peak Velocity 103.0 cm/s MV Area PHT 3.4 cm squared Mitral E to A Ratio 0.8 TR Peak Velocity 214.0 cm/s TR Peak Gradient 18.3 mmHg TV Peak E Velocity 92.0 cm/s PV Peak Velocity 101.0 cm/s FINDINGS Left Ventricle Left ventricle is normal in size. LV systolic function is normal with EF of 60-65%. No regional wall motion abnormalities are seen. Grade 1 diastolic dysfunction. Right Ventricle Normal in size and function Right Atrium Normal in size Left Atrium Normal in size Mitral Valve Structurally normal mitral valve. Trace mitral regurgitation Aortic Valve Aortic valve is thickened. Mild aortic stenosis with aortic valve area 1.4 cm2 and mean gradient of 10 mmHg. Tricuspid Valve Mild tricuspid regurgitation. Pulmonary artery systolic pressure is normal. Pulmonic Valve Trace pulmonic regurgitation. Pericardium Normal Aorta Normal in size IVC Appears to be normal CONCLUSIONS LV systolic function is normal with EF of 60-65%. Grade 1 diastolic dysfunction. Trace mitral regurgitation Mild aortic stenosis. Mild tricuspid regurgitation Trace pulmonic regurgitation Bennett Kamara MD (Electronically Signed) Final Date: 31 May 2025 10:30 S
== END 2025-06-15 23:59 | disposition home or self-care (01) ==
LOC: ONCMED 12:28
PROVIDERS: PCP Internal Medicine; Visit Provider Internal Medicine
DX: C88.00 Waldenstrom macroglobulinemia not having achieved remission (principal); E04.1 Nontoxic single thyroid nodule; R03.0 Elevated blood-pressure reading, without diagnosis of hypertension; M16.0 Bilateral primary osteoarthritis of hip; M17.0 Bilateral primary osteoarthritis of knee; M85.89 Other specified disorders of bone density and structure, multiple sites; Z79.899 Other long term (current) drug therapy; D64.9 Anemia, unspecified; E03.9 Hypothyroidism, unspecified; M54.50 Low back pain, unspecified; C88.0 Waldenstrom macroglobulinemia; Z79.69 Long term (current) use of other immunomodulators and immunosuppressants
CPT/HCPCS: 93306

== ENCOUNTER → 2025-06-19 09:38 | Outpatient (BNVA) | payer MEDICARE, OTHER, SELFPAY | PROVIDERS: PCP Internal Medicine; Referring Provider Nurse Practitioner Family; Visit Provider Internal Medicine Cardiovascular Disease | DX: I35.0 Nonrheumatic aortic (valve) stenosis (principal); R03.0 Elevated blood-pressure reading, without diagnosis of hypertension; R07.9 Chest pain, unspecified | CPT/HCPCS: 93005; 99204 ==

== ENCOUNTER 2025-07-13 11:36 | Oncology outpatient (recurring) (ONCR) | payer MEDICARE, OTHER, SELFPAY ==
[2025-07-13 13:00] LABS: Hematocrit 36.5 % (36-47); Hemoglobin 12.10 g/dL (11.27-16.99); Mean Corpuscular HGB Conc 33.2 g/dL (30-55); Mean Corpuscular Hemoglobin 33.1 pg (27-33); Mean Corpuscular Volume 99.7 fl (85-98); Nucleated Red Blood Cells % 0 %; Platelet Count 108 10^3/cmm (157-399); Red Blood Count 3.66 10^6/uL (3.85-5.65); White Blood Count 4.30 10^3/uL (3.29-11.43)
[2025-07-13 13:23] LABS: Alanine Aminotransferase 15 U/L (0-33); Albumin Level 3.9 g/dL (3.5-5.2); Alkaline Phosphatase 75 U/L (35-105); Anion Gap 13.1 (5-19); Aspartate Amino Transferase 22 U/L (0-32); Blood Urea Nitrogen 14 mg/dL (8-23); Calcium 9.4 mg/dL (8.5-10.5); Carbon Dioxide 27 mmol/L (22-29); Chloride 106 mmol/L (98-107); Ferritin 84 ng/mL (15-150); Globulin 3.6 g/dL (1.3-4.6); Glucose 114 mg/dL (65-115); Iron 71 ug/dL (37-145); Osmolality Calculated 295 mOsm/kg (285-295); Potassium 4.1 mmol/L (3.5-5.1); Sodium 142 mmol/L (136-145); Total Iron Binding Capacity 231 mcg/dl; Total Protein 7.5 g/dL (6.6-8.7); Unsaturated Iron Binding 160 ug/dL (112-347)
== END 2025-07-16 23:59 | disposition home or self-care (01) ==
LOC: ONCMED 11:38
PROVIDERS: PCP Internal Medicine; Visit Provider Internal Medicine
DX: C88.00 Waldenstrom macroglobulinemia not having achieved remission (principal); D64.9 Anemia, unspecified
CPT/HCPCS: 36415; 80053; 82728; 82746; 82784; 83540; 83550; 85025

== ENCOUNTER 2025-07-20 11:05 | Oncology outpatient (recurring) (ONCR) | payer MEDICARE, OTHER, SELFPAY | END 2025-08-15 23:59 | disposition home or self-care (01) | PROVIDERS: PCP Internal Medicine; Visit Provider Internal Medicine | DX: C88.00 Waldenstrom macroglobulinemia not having achieved remission (principal); E04.1 Nontoxic single thyroid nodule; M85.80 Other specified disorders of bone density and structure, unspecified site; M16.0 Bilateral primary osteoarthritis of hip; M17.0 Bilateral primary osteoarthritis of knee; D64.9 Anemia, unspecified; Z79.899 Other long term (current) drug therapy | CPT/HCPCS: 99213 ==

== ENCOUNTER 2025-09-26 10:58 | Outpatient (CLI) | payer MEDICARE, OTHER, SELFPAY ==
--- NOTE | 2025-09-26 11:04 | USCV_ITS ---
Amita Chen Age: 80 Gender: F : 1945 Exam Date: 09/26/2025 11:23 Ordering Phys: Josefa Hansen MD Technologist: LUÍS Exam Location: [facility] – [place] Indication: RLE Pain/Bruising from fall HISTORY: RLE pain/bruising PROCEDURES: Venous duplex imaging was performed in only the right lower extremity. The following venous structures were evaluated: common femoral vein, profunda vein, proximal portion of the greater saphenous vein, superficial femoral vein, and the popliteal vein. In addition, the posterior tibial and peroneal trunk were evaluated. Serial compression, augmentation maneuvers, and spectral Doppler flow evaluation were performed. FINDINGS: Normal 2-D Doppler and augmentation and compressibility throughout the lower extremity venous structures. Additional imaging through the proximal calf veins also reveals no thrombus. Limited evaluation of the greater saphenous vein is patent with no thrombus. CONCLUSIONS No DVT right lower extremity. Dr. Zulema Kong DO (Electronically Signed) Final Date: 26 September 2025 15:54 S
== END 2025-09-26 10:59 | disposition home or self-care (01) ==
PROVIDERS: PCP Internal Medicine; Visit Provider Internal Medicine
DX: M79.661 Pain in right lower leg (principal); R59.0 Localized enlarged lymph nodes; S80.12XA Contusion of left lower leg, initial encounter; X58.XXXA Exposure to other specified factors, initial encounter
CPT/HCPCS: 93971

== ENCOUNTER 2025-10-26 14:02 | Oncology outpatient (recurring) (ONCR) | payer MEDICARE, OTHER, SELFPAY ==
[2025-10-19 14:31] LABS: Hematocrit 36.0 % (36-47); Hemoglobin 11.70 g/dL (11.27-16.99); Mean Corpuscular HGB Conc 32.5 g/dL (30-55); Mean Corpuscular Hemoglobin 32.2 pg (27-33); Mean Corpuscular Volume 99.2 fl (85-98); Nucleated Red Blood Cells % 0 %; Platelet Count 137 10^3/cmm (157-399); Red Blood Count 3.63 10^6/uL (3.85-5.65); White Blood Count 6.41 10^3/uL (3.29-11.43)
[2025-10-19 14:49] LABS: Alanine Aminotransferase 16 U/L (0-33); Albumin Level 4.1 g/dL (3.5-5.2); Alkaline Phosphatase 77 U/L (35-105); Anion Gap 14.3 (5-19); Aspartate Amino Transferase 23 U/L (0-32); Blood Urea Nitrogen 18 mg/dL (8-23); Calcium 9.7 mg/dL (8.5-10.5); Carbon Dioxide 28 mmol/L (22-29); Chloride 104 mmol/L (98-107); Globulin 3.7 g/dL (1.3-4.6); Glucose 98 mg/dL (65-115); Osmolality Calculated 296 mOsm/kg (285-295); Potassium 4.3 mmol/L (3.5-5.1); Sodium 142 mmol/L (136-145); Total Protein 7.8 g/dL (6.6-8.7)
--- NOTE | 2025-10-20 08:00 | PETR_ITS ---
PROCEDURE INFORMATION: Exam: PET/CT Skull Base to Mid-thigh Exam date and time: 10/20/2025 9:09 AM Age: 80 years old Clinical indication: Waldenstroms macroglobulinemia not having achieved remission. Prior surgery; Surgery date: 6+ months; Surgery type: Hysterectomy. LABS AND CLINICAL REPORTS: Glucose: 104 mg/dl Treatment strategy for malignancy (PET staging): Restaging (PS) TECHNIQUE: Imaging protocol: Following at least four-hour fasting and following the injection of radiopharmaceutical, low dose CT images were obtained. Then, PET images were obtained. Attenuation corrected images were constructed using the CT scan. Fused images of PET and CT were reviewed. The standardized uptake values (SUV) reported below are maximum values within a region of interest, expressed in gm/ml. Exam includes orbital meatal line to mid-thigh. SUV normalization method: BodyWeight Radiopharmaceutical: 11.03 mCi F-18 FDG (Fluorodeoxyglucose), IV. Time of imaging post radiopharmaceutical administration: 52 minutes Injection site: left ac COMPARISON: CT chest abd w con*[id number] 04/20/2024, ultrasound thyroid 05/12/2024 FINDINGS: Brain: On the nondedicated limited brain images there is no abnormal distribution of the radiotracer in the oh and white matter. Pharynx: Normal distribution of the radiotracer in nasopharyngeal, and oropharyngeal structures. Larynx: Normal distribution of the radiotracer in laryngeal structures. Thyroid: No abnormal uptake. Specifically, there is no abnormal uptake in 1.5 x 1 cm hypodense nodule in the right thyroid lobe (series 202, image 53, coronal image 330). Lungs, pleura and trachea: No abnormal uptake. No lung nodules or masses. No pleural effusion. Heart: Normal physiologic uptake. There is no cardiomegaly. Minimal coronary artery calcification is present. There is no pericardial effusion. Mediastinal space: About 1.5 cm long segment of mildly increased uptake of 4.2 SUV in the distal esophagus with no abnormal dilatation or wall thickening is indeterminate. Liver: Normal size without abnormal radiotracer uptake. Stable nodular liver contours with atrophy of the posterior segments of the right lobe in keeping with cirrhosis. Gallbladder and biliary ducts: No abnormal uptake. Pancreas: Normal distribution of radiotracer. Spleen: Normal size without abnormal radiotracer uptake. Adrenal glands: No abnormal uptake. No nodules. Kidneys and ureters: Normal physiologic uptake. No hydronephrosis. Stable 2.8 cm simple cyst with layering milk of calcium in the upper pole of the right kidney. Stomach and bowel: Long segment of increased uptake in the right colon with no corresponding CT abnormality is likely benign. Stable diverticulosis of the left colon most extensive in the sigmoid colon. Intraperitoneal and retroperitoneal spaces: No abnormal uptake. Minimal amount of free intraperitoneal fluid in the pelvis similar to prior exam. Urinary bladder: Normal physiologic uptake. Reproductive: No abnormal uptake. The uterus is absent post surgically. Vasculature: No abnormal uptake. No aortic aneurysm. Stable signs of portal hypertension with recanalization of the paraumbilical vein and periumbilical varices in the anterior abdominal wall. Lymph nodes: No abnormal uptake. No lymphadenopathy in the head, neck, chest, abdomen, pelvis, and extremities. Skeleton: Benign linear uptake along the lateral margin of bilateral greater femoral trochanters more prominent on the right side. No suspicious lytic or sclerotic bone lesions. Soft tissues: Haziness of the subcutaneous fat laterally in the right proximal thigh with mildly increased uptake of 4.3 SUV. METRICS: Mediastinal blood pool: Max SUV of 2.4, mean SUV of 2.1 Liver uptake: Max SUV of 3, mean SUV of 2.6 PET/PET skull to thigh INIT [id number] IMPRESSION: 1. FDG avid soft tissue abnormality in the subcutaneous fat laterally in the right proximal thigh for clinical correlation with focal inflammatory or posttraumatic finding. Neoplastic etiology felt to be less likely though can not be excluded based on imaging 2. Short segment of mildly increased uptake in the distal esophagus with no CT abnormality for endoscopic correlation. 3. No lymphadenopathy, no splenomegaly, no suspicious bone lesions. Stable appearance of cirrhotic liver with trace amount of ascites and venous varices.
[2025-10-20 08:45] LABS: PROTEIN, TOTAL 8.0 g/dL (6.1-8.1)
[2025-10-20 19:49] LABS: ALPHA 1 GLOBULIN 0.3 g/dL (0.2-0.3); ALPHA 2 GLOBULIN 0.7 g/dL (0.5-0.9); BETA 1 GLOBULIN 0.4 g/dL (0.4-0.6); BETA 2 GLOBULIN 0.2 g/dL (0.2-0.5)
[2025-10-23 16:03] LABS: KAPPA LIGHT CHAIN, FREE, SERUM 16.8 mg/L (3.3-19.4); KAPPA/LAMBDA LIGHT CHAINS FREE 0.59 (0.26-1.65); LAMBDA LIGHT CHAIN, FREE, SERU 28.6 mg/L (5.7-26.3)
== END 2025-11-15 23:59 | disposition home or self-care (01) ==
PROVIDERS: PCP Internal Medicine; Visit Provider Internal Medicine
DX: C88.00 Waldenstrom macroglobulinemia not having achieved remission (principal); E04.1 Nontoxic single thyroid nodule; Z79.899 Other long term (current) drug therapy; M85.80 Other specified disorders of bone density and structure, unspecified site; M16.0 Bilateral primary osteoarthritis of hip; D64.9 Anemia, unspecified; K74.60 Unspecified cirrhosis of liver
CPT/HCPCS: 36415; 78815; 80053; 82784; 83010; 83615; 83883; 84155; 84165; 85025; 85651; 86334; 99213; A9552